=== PATIENT | female | born 2000 | race Caucasian/White ===

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

== ENCOUNTER 2019-02-19 13:28 | Inpatient (IN) | payer OTHER ==
[2019-02-19] MEDS ORDERED: CARBOPROST TROMETHAMINE 250 MCG/ML 1 ML AMP IM PRN (14:18)
[2019-02-19] MEDS ORDERED: LIDOCAINE 0.5% (PF) 5 MG/ML (50 ML SDV) SQ PRN (14:18)
[2019-02-19] MEDS ORDERED: OXYTOCIN 10 UNIT/ML 1 ML VIAL IM PRN (14:18)
[2019-02-19] MEDS ORDERED: METHYLERGONOVINE 0.2 MG/ML 1 ML AMP IM PRN (14:18)
[2019-02-19] MEDS ORDERED: TERBUTALINE 1 MG/ML VIAL SQ PRN (14:18)
[2019-02-19] MEDS: LACTATED RINGERS 1,000 ML IV SCH ×4 (14:24→23:48)
[2019-02-19] MEDS ORDERED: OXYTOCIN 30 UNITS/500 ML NS 30 UNIT in SALINE 1 500ML.BAG IV SCH (14:30)
[2019-02-19 14:34] LABS: Anisocytosis Slight; Basophils # (A) 0.1 k/uL (0-0.2); Basophils % (A) 0 %; Eosinophils # (A) 0.1 k/uL (0-0.7); Eosinophils % (A) 1 %; HGB 8.4 gm/dL (11.4-16.0); Hypochromasia Marked; Lymphocytes # (A) 1.7 k/uL (1.0-4.8); Lymphocytes % (A) 15 %; MCH 21.9 pg (25.0-35.0); MCV 70.6 fL (80.0-100.0); Mean Platelet Volume 8.4; Microcytosis Moderate; Monocytes # (A) 0.5 k/uL (0-1.0); Monocytes % (A) 4 %; Neutrophils # (A) 8.9 k/uL (1.3-7.7); Neutrophils % (A) 78 %; Platelet Count 266 k/uL (150-450); Poikilocytosis Slight; RBC 3.82 m/uL (3.80-5.40); RDW 16.9 % (11.5-15.5); WBC 11.4 k/uL (4.0-11.0)
[2019-02-19 15:55] VITALS: BMI 29.7
--- NOTE | 2019-02-19 18:17 | P.HPOB ---
History of Present Illness H&P Date: 02/19/19 Chief Complaint: Leaking of fluid This patient is a pleasant 19-year-old 1 para 0 female estimated date of confinement 02/27/2019 estimated gestational age 38-6/7 weeks gestation presents to labor and delivery complaining gush of fluid at 10:00 this morning. Patient a positive amnio sure here in labor and delivery. Patient is having irregular contractions. care is per Dr. Elizalde appears to be uncomplicated with the exception first trimester nausea vomiting and some anemia. Review of Systems Gastrointestinal: Reports heartburn Genitourinary: Reports Menstruation: Reports amenorrhea Past Medical History Past Medical History: No Reported History, Blood Disorder, Fibromyalgia Additional Past Medical History / Comment(s): anemia, fibromyalgia, History of Any Multi-Drug Resistant Organisms: None Reported Past Surgical History: Ear Surgery Past Anesthesia/Blood Transfusion Reactions: No Reported Reaction Past Psychological History: No Psychological Hx Reported Smoking Status: Never smoker Past Alcohol Use History: None Reported Past Drug Use History: None Reported - Past Family History Father Family Medical History: No Reported History Medications and Allergies Home Medications Medication Instructions Recorded Confirmed Type Lsw-Jplj-Buqtd Acid 1 cap PO DAILY 07/01/18 02/19/19 History [-U Capsule (formulary)] Allergies Allergy/AdvReac Type Severity Reaction Status Date / Time lactose Allergy Abdominal Verified 02/19/19 13:57 Pain latex Allergy Rash/Hives Verified 02/19/19 13:57 metoclopramide [From Reglan] AdvReac Chest Pain Verified 02/19/19 13:57 Exam Vital Signs Temp Pulse Resp BP 02/19/19 14:15 97.2 F L 97 16 110/60 Intake and Output 02/19/19 02/19/19 02/19/19 06:59 14:59 22:59 Other: # Voids 2 Weight 76.204 kg - OBG Physical Exam Abdomen: bowel sounds normal, no diffuse tenderness, no bruit present, no guarding noted, no hepatomegaly, no splenomegaly, no mass Vulva: both: normal Vagina: normal moisture, no discharge Cervix: no lesion (Cervix is 2-3 cm dilated 50% effaced and soft there is a fore bag presenting.), no discharge Uterus: enlarged Results blood work shows she is O positive, rubella nonimmune, RPR is nonreact hollis, hepatitis B is negative, HIV is nonreactive, Glucola was normal, group B strep was negative, ultrasounds have been normal. Result Diagrams: 02/19/19 14:15 Abnormal Lab Results - Last 24 Hours (Table) 02/19/19 Range/Units 14:15 WBC 11.4 H (4.0-11.0) k/uL Hgb 8.4 L (11.4-16.0) gm/dL Hct 27.0 L (34.0-46.0) % MCV 70.6 L (80.0-100.0) fL MCH 21.9 L (25.0-35.0) pg RDW 16.9 H (11.5-15.5) % Neutrophils # 8.9 H (1.3-7.7) k/uL Assessment and Plan Assessment: This is a pleasant 19-year-old 1 para 0 female 38-6/7 weeks gestation with premature rupture membranes 10:00 this morning and at this point no regular contractions plan is Pitocin induction of labor and anticipate vaginal delivery. (1) Premature rupture of membranes Current Visit: Yes Status: Acute Code(s): O42.90 - REHAN ROM, 7TH0 BETW RUPT & ONST LABR, UNSP WEEKS OF GEST SNOMED Code(s): 55818296 (2) 39 weeks gestation of Current Visit: Yes Status: Acute Code(s): Z3A.39 - 39 WEEKS GESTATION OF SNOMED Code(s): 40617099
[2019-02-19] MEDS ORDERED: BUTORPHANOL 1 MG/ML 1 ML VIAL IV PRN (19:20)
[2019-02-19] MEDS ORDERED: fentaNYL (PF) 50 MCG/ML 5 ML AMP ONE (20:15)
[2019-02-19] MEDS ORDERED: SODIUM CHLORIDE 0.9% 100 ML BAG ONE (20:15)
[2019-02-19] MEDS ORDERED: ROPIVACAINE 5MG/ML 20ML VIAL ONE (20:15)
[2019-02-19] MEDS ORDERED: AMPICILLIN 2,000 MG in SODIUM CHLORIDE 0.9% 100 ML IVPB STA (23:33)
[2019-02-20] MEDS ORDERED: AMPICILLIN 1,000 MG in SODIUM CHLORIDE 0.9% 50 ML IVPB SCH (03:34)
--- NOTE | 2019-02-20 06:31 | P.MSEPDOC ---
Presenting Problems - Arrival Data Date of Arrival on Unit: 02/19/19 Time of Arrival on Unit: 14:00 Mode of Transport: Ambulatory - Complaint OB-Reason for Admission/Chief Complaint: Rule Out SROM Medical History - Information : 1 Para: 1 Term: 1 : 0 Abortions: Spontaneous or Elective: 0 Number of Living Children: 1 - Gestational Age Gestational Age by JESSICA (wks/days): 38 Weeks and 6 Days Review of Systems - Review of Systems Constitutional: No problems Breast: No problems ENT: No problems Cardiovascular: No problems Respiratory: No problems Gastrointestinal: No problems Genitourinary: No problems Musculoskeletal: No problems Neurological: No problems Skin: No problems Vital Signs - Temperature Temperature: 97.2 F - Pulse Right Brachial Pulse Rate: 97 Pulse Assessment Method: Automatic Cuff - Respirations Respiratory Rate: 16 Oxygen Delivery Method: Room Air - Blood Pressure Right Arm Blood Pressure: 110/60 Blood Pressure Mean: 76 Blood Pressure Source: Automatic Cuff Medical Screen Scoring (Pre) - Cervical Exam Dilation: 1-3 cm = 1 Effacement: More than 50% = 2 Membranes: Ruptured = 3 - Uterine Contractions Frequency: > or = 36 weeks =2 Duration: > 40 seconds = 2 Intensity: N/A - Maternal Vital Signs Maternal Temperature: N/A Maternal Blood Pressure: N/A Signs of Preeclampsia: N/A Maternal Respirations: N/A - Maternal Trauma Maternal Trauma: N/A - Assessment - Baby A Baseline FHR: 145 Heart Rate - NICHD Category: Category I (Normal) = 0 NST: Reactive Position: N/A Station: N/A - Total Score - Baby A Total Score - Baby A: 10 - Total Score - Baby B Total Score - Baby B: 10 - Total Score - Baby C Total Score - Baby C: 10 - Level of Risk - Baby A Level of Risk - Baby A: High (10+) - Level of Risk - Baby B Level of Risk - Baby B: High (10+) - Level of Risk - Baby C Level of Risk - Baby C: High (10+) Physician Notification (Pre) - Physician Notified Physician Notified Date: 02/19/19 Physician Notified Time: 14:15 Physician/Practitioner Notifed:: Dr. Kaba Spoke With: Dr. Kaba New Order Received: Yes - Notification Comment Comment: admit for labor Disposition - Disposition OB Disposition: Admit I agree with the RN Medical Screening Exam: Yes Risk & Benefit of care provided described in d/c instruction: Yes Diagnosis: ENCOUNTER FOR FULL-TERM UNCOMPLICATED DELIVERY
[2019-02-20] MEDS ORDERED: HYDROCORTISONE 2.5% RECTAL CREAM 30 GM TUBE RECTAL PRN (07:06)
[2019-02-20] MEDS ORDERED: SIMETHICONE 80 MG CHEWABLE PO PRN (07:06)
[2019-02-20] MEDS ORDERED: BISACODYL 10 MG SUPP RECTAL PRN (07:06)
[2019-02-20] MEDS ORDERED: MEASLES-MUMPS-RUBELLA VACC/PF 12,500 UNIT/0.5 ML VIAL SQ ONE (07:06)
[2019-02-20] MEDS ORDERED: LANOLIN CREAM 5 GM TUBE TOPICAL PRN (07:06)
[2019-02-20] MEDS ORDERED: ZOLPIDEM 5 MG TAB PO PRN (07:06)
[2019-02-20] MEDS ORDERED: BENZOCAINE/MENTHOL SPRAY 1 GM/SPRAY AEROSOL TOPICAL PRN (07:06)
[2019-02-20] MEDS ORDERED: WITCH HAZEL 1 EACH MED..PAD TOPICAL PRN (07:06)
[2019-02-20] MEDS ORDERED: diphenhydrAMINE 25 MG CAP PO PRN (07:06)
[2019-02-20] MEDS ORDERED: diphenhydrAMINE 50 MG/ML 1 ML VIAL IVP PRN (07:06)
[2019-02-20] MEDS ORDERED: OXYTOCIN 20 UNITS/1000 ML NS 1,000 ML IV SCH (07:15)
--- NOTE | 2019-02-20 07:21 | P.PROBDLV ---
Vaginal Delivery Note - . Vaginal Delivery Note: Normal vaginal delivery viable male infant Apgars 9 and 9 delivery time is 0644 hours. Please see dictated H&P for intimate details of this patient's admission. In brief summary this is a pleasant 19-year-old 1 para 0 female 39 weeks gestation admitted to labor and delivery yesterday with spontaneous rupture membranes at 10 in the morning. Patient had Pitocin induction of labor and did receive an epidural for pain control. Labor progresses normally. At the 12 hour riri I did give her ampicillin for prolonged rupture. Patient got to complete pushes for approximately 30 minutes. She pushed head to the perineum the posterior perineum is supported we have controlled delivery of 's head over the intact perineum. Mouth and nares are bulb suctioned. There is a nuchal cord which is very loose and reduced. With gentle downward traction within delivery the anterior and posterior shoulder and rest this 's body. This is a vigorous viable male infant Apgars are 9 and 9 delivery time is 0644 hours. The is late on the mother's abdomen. After the umbilical cord is done pulsating it is doubly clamped and cut appears to be trivascular. The placenta is then spontaneously delivered intact. Inspection of the perineum shows a second-degree laceration which is repaired with 3-0 Vicryl usual fashion excellent reapproximation is noted. Estimated blood loss is 150 mL. There are no complications. Infant and mother are stable delivery room.
[2019-02-20] MEDS: IBUPROFEN 600 MG TAB PO PRN (07:44)
[2019-02-20] MEDS: SENNOSIDES-DOCUSATE SODIUM 1 EACH TAB PO SCH ×2 (10:31→19:30)
[2019-02-20] MEDS: ACETAMINOPHEN TAB 325 MG TAB PO PRN (15:37)
--- NOTE | 2019-02-21 06:30 | P.PNOBGVD ---
Subjective - Subjective Patient reports: Reports appetite normal, Reports voiding normally, Reports pain well controlled, Reports ambulating normally : doing well Objective - Latest Vital Signs Latest vital signs: Vital Signs Temp Pulse Resp BP 02/20/19 23:35 98.0 F 86 16 117/67 02/20/19 19:33 97.8 F 86 16 101/62 02/20/19 16:00 98.2 F 80 16 112/58 02/20/19 12:00 98.9 F 78 16 107/54 02/20/19 09:01 97.8 F 100 16 120/56 02/20/19 08:31 99.0 F 90 14 108/62 02/20/19 08:01 88 14 113/62 02/20/19 07:46 113 H 16 107/54 02/20/19 07:31 100.8 F H 110 H 16 122/53 02/20/19 07:16 116 H 16 113/58 02/20/19 07:01 100.5 F H 103 H 16 114/58 02/20/19 06:31 97.2 F L 97 16 110/60 Intake and Output 02/20/19 02/20/19 02/21/19 14:59 22:59 06:59 Other: # Voids 1 2 1 - Exam Lungs: bilateral: normal Chest: Normal S1, Normal S2 Extremities: Present: normal Abdomen: Present: normal appearance, soft Uterus: Present: normal, firm Assessment and Plan Assessment: Post day #1. Patient is resting without complaints. Vital signs are stable and she is afebrile. Her baby is doing well but needs to stay another day due to prolonged rupture. Therefore, we will continue routine care discharge home tomorrow (1) Premature rupture of membranes Current Visit: Yes Status: Acute Code(s): O42.90 - REHAN ROM, 7TH0 BETW RUPT & ONST LABR, UNSP WEEKS OF GEST SNOMED Code(s): 09326391 (2) 39 weeks gestation of Current Visit: Yes Status: Acute Code(s): Z3A.39 - 39 WEEKS GESTATION OF SNOMED Code(s): 78748363
[2019-02-21] MEDS: SENNOSIDES-DOCUSATE SODIUM 1 EACH TAB PO SCH ×2 (08:32→20:43)
[2019-02-21] MEDS: IBUPROFEN 600 MG TAB PO PRN ×3 (08:32→20:43)
[2019-02-21] MEDS: ACETAMINOPHEN TAB 325 MG TAB PO PRN (23:41)
[2019-02-21 23:50] VITALS: TEMP 98.5
[2019-02-22] MEDS: IBUPROFEN 600 MG TAB PO PRN ×2 (03:45→11:13)
--- NOTE | 2019-02-22 06:03 | P.PNOBGVD ---
Subjective - Subjective Patient reports: Reports appetite normal, Reports voiding normally, Reports pain well controlled, Reports ambulating normally : doing well Objective - Latest Vital Signs Latest vital signs: Vital Signs Temp Pulse Resp BP Pulse Ox 02/21/19 23:50 98.5 F 82 14 108/55 100 02/21/19 15:39 98.2 F 82 16 105/62 02/21/19 08:00 98.6 F 83 16 111/72 Intake and Output 02/21/19 02/21/19 02/22/19 14:59 22:59 06:59 Other: # Voids 1 1 1 - Exam Lungs: bilateral: normal Chest: Normal S1, Normal S2 Extremities: Present: normal Abdomen: Present: normal appearance, soft Uterus: Present: normal, firm Assessment and Plan Assessment: day #2. Patient is resting without complaints. Vital signs are stable she is afebrile. Uterus is firm nontender she's having normal lochia. My impression this is a normal course. Plan is to continue routine care discharge home later today. (1) Premature rupture of membranes Current Visit: Yes Status: Acute Code(s): O42.90 - REHAN ROM, 7TH0 BETW RUPT & ONST LABR, UNSP WEEKS OF GEST SNOMED Code(s): 97736158 (2) 39 weeks gestation of Current Visit: Yes Status: Acute Code(s): Z3A.39 - 39 WEEKS GESTATION OF SNOMED Code(s): 02530841
--- NOTE | 2019-02-22 06:06 | P.DS ---
Providers Date of admission: 02/19/19 13:48 Expected date of discharge: 02/22/19 Attending physician: Landen Kaba Primary care physician: Stated None - Discharge Diagnosis(es) (1) Premature rupture of membranes Current Visit: Yes Status: Acute (2) 39 weeks gestation of Current Visit: Yes Status: Acute Hospital Course: Please see dictated H&P for intimate details of this patient's admission. Brief summary this is a pleasant 19-year-old 1 para 0 female 39-0/7 weeks gestation who is admitted to labor and delivery with spontaneous rupture membranes. Patient is not having any contractions therefore has Pitocin augmentation/induction of labor. She is given antibiotics at the 12 hour riri. Patient therefore goes on to have a vaginal delivery viable male . Please see dictated delivery note. day #2 patient's felt be stable for discharge home follow up with Dr. Elizalde in 6 weeks. Procedures: Normal vaginal delivery Patient Condition at Discharge: Good Plan - Discharge Summary New Discharge Prescriptions: New Ibuprofen [Motrin] 600 mg PO Q6HR PRN #40 tab PRN Reason: Mild Pain Or Fever >= 100.5 No Action [id number] Acid [-U Capsule (formulary)] 1 cap PO DAILY Discharge Medication List [id number] Acid [-U Capsule (formulary)] 1 cap PO DAILY 07/01/18 [History] Ibuprofen [Motrin] 600 mg PO Q6HR PRN #40 tab 02/22/19 [Rx] Follow up Appointment(s)/Referral(s): Tere Elizalde DO [Doctor of Osteopathic Medicine] - 6 Weeks Patient Instructions/Handouts: Vaginal Delivery (DC) Activity/Diet/Wound Care/Special Instructions: No intercourse or anything per vagina for 6 weeks. Please call if any fever, chills, excessive vaginal bleeding, and/or abdominal pain. Discharge Disposition: HOME SELF-CARE
[2019-02-22 08:04] VITALS: BP 119/57; PULSE 84; RESP 16
[2019-02-22] MEDS: SENNOSIDES-DOCUSATE SODIUM 1 EACH TAB PO SCH (08:09)
== END 2019-02-22 12:57 | disposition home or self-care (01) | DRG 807 ==
LOC: FBPOP 13:28 → 4FBP 13:48
PROVIDERS: ADMIT Obstetrics & Gynecology; ATTEND Obstetrics & Gynecology
PROC: 3E033VJ Introduction of Other Hormone into Peripheral Vein, Percutaneous Approach (ICD-10-PCS; 2019-02-19)
PROC: 00HU33Z Insertion of Infusion Device into Spinal Canal, Percutaneous Approach (ICD-10-PCS; 2019-02-19)
PROC: 3E0R3BZ Introduction of Anesthetic Agent into Spinal Canal, Percutaneous Approach (ICD-10-PCS; 2019-02-19)
PROC: 10E0XZZ Delivery of Products of Conception, External Approach (ICD-10-PCS; principal; 2019-02-20)
PROC: 0KQM0ZZ Repair Perineum Muscle, Open Approach (ICD-10-PCS; 2019-02-20)
DX: O42.92 Full-term premature rupture of membranes, unspecified as to length of time between rupture and onset of labor (principal); Z37.0 Single live birth; O99.613 Diseases of the digestive system complicating pregnancy, third trimester; K21.9 Gastro-esophageal reflux disease without esophagitis; O99.89 Other specified diseases and conditions complicating pregnancy, childbirth and the puerperium; M79.7 Fibromyalgia; O69.81X0 Labor and delivery complicated by cord around neck, without compression, not applicable or unspecified; O70.1 Second degree perineal laceration during delivery; Z3A.39 39 weeks gestation of pregnancy; Z79.899 Other long term (current) drug therapy; Z86.2 Personal history of diseases of the blood and blood-forming organs and certain disorders involving the immune mechanism; Z88.8 Allergy status to other drugs, medicaments and biological substances; Z91.040 Latex allergy status; Z91.011 Allergy to milk products
CPT/HCPCS: 85025; 86850; 86900; 86901; 88307; 90471; 90707

== ENCOUNTER 2019-02-24 16:57 | Emergency (ER) | payer OTHER ==
[2019-02-24 17:10] VITALS: RESP 18
[2019-02-24] MEDS ORDERED: SODIUM CHLORIDE 0.9% 1,000 ML IV STA (17:36)
[2019-02-24] MEDS ORDERED: ACETAMINOPHEN TAB 500 MG TAB PO STA (17:36)
--- NOTE | 2019-02-24 17:48 | ED ---
General Adult HPI - General Chief complaint: Headache Stated complaint: Headache Time Seen by Provider: 02/24/19 17:35 Source: patient Mode of arrival: ambulatory Limitations: no limitations - History of Present Illness Initial comments: Dictation was produced using [employer] dictation software. please excuse any grammatical, word or spelling errors. Chief Complaint: 19-year-old female presents with headache. History of Present Illness: 19-year-old female she is 3-4 days . Patient has been having headaches since the childbirth. She states it is localized to her mid face. She states when the headache gets to its peak she does also have visual changes. Patient denies having any headaches like this in the past. She did receive an epidural during the time of childbirth. Denies any fever, chills or night sweats. She does have a history of fibromyalgia. The ROS documented in this emergency department record has been reviewed and confirmed by me. Those systems with pertinent positive or negative responses have been documented in the HPI. All other systems are other negative and/or noncontributory. PHYSICAL EXAM: General Impression: Alert and oriented x3, not in acute distress HEENT: Normocephalic atraumatic, extra-ocular movements intact, pupils equal and reactive to light bilaterally, mucous membranes moist. Cardiovascular: Heart regular rate and rhythm, S1&S2 audible, no murmurs, rubs o r gallops Chest: Lungs clear to auscultation bilaterally, no rhonchi, no wheeze, no rales Abdomen: Bowel sounds present, abdomen soft, non-tender, non-distended, no organomegaly Musculoskeletal: Pulses present and equal in all extremities, no peripheral edema Motor: no focal deficits noted Neurological: CN II-XII grossly intact, no focal motor or sensory deficits noted Skin: Intact with no visualized rashes Psych: Normal affect and mood ED course: 19-year-old female presents with headache. Patient is within 1 week of . As upon arrival are within acceptable limits. Giv en patient's and has symptoms of notes and headache there is concern of venous sinus thrombosis. Vital signs do not support the diagnosis of preeclampsia causing headache.Computed tomography scan was obtained showing no findings of venous sinus thrombosis. There is a small amount of posterior cranial air likely inadvertent air bubble from lumbar puncture otherwise negative exam. This finding was discussed with anesthesia who had no recommendations in to treat supportively. Laboratory evaluation obtained. Patient is hemoglobin of 6.6 there is findings of microcytic hypochromic anemia. Coag panel unremarkable. Metabolic panel is unremarkable. No proteinuria, urinalysis unremarkable. Patient given some Tylenol and intravenous fluids. Discussed lab findings with Dr. Elizalde who is patient's home aide. Dr. Elizalde requests that no transfusions be given given that she does not have any symptoms of acute blood loss anemia. She is told to follow-up with Dr. Elizalde for repeat CBC. Patient reevaluated found with stable medical condition. Patient told to rest and follow up Dr. Elizalde. Temperature was discussed. Patient is told to return to emergency Department with any worsening symptoms especially neurologic symptoms including worsening headache, seizures, altered mental status. Patient also told to return to the emergency Department with signs of a blood loss anemia with lightheadedness and dyspnea on exertion. Patient clear for discharge. - Related Data Previous Rx's Medication Instructions Recorded Ibuprofen [Motrin] 600 mg PO Q6HR PRN #40 tab 02/22/19 Allergies Allergy/AdvReac Type Severity Reaction Status Date / Time lactose Allergy Abdominal Verified 02/24/19 17:55 Pain latex Allergy Rash/Hives Verified 02/24/19 17:55 metoclopramide [From Reglan] AdvReac Chest Pain Verified 02/24/19 17:55 Review of Systems ROS Statement: Those systems with pertinent positive or pertinent negative responses have been documented in the HPI. ROS Other: All systems not noted in ROS Statement are negative. Past Medical History Past Medical History: No Reported History, Blood Disorder, Fibromyalgia Additional Past Medical History / Comment(s): anemia, fibromyalgia, History of Any Multi-Drug Resistant Organisms: None Reported Past Surgical History: Ear Surgery Past Anesthesia/Blood Transfusion Reactions: No Reported Reaction Past Psychological History: No Psychological Hx Reported Smoking Status: Never smoker Past Alcohol Use History: None Reported Past Drug Use History: None Reported - Past Family History Father Family Medical History: No Reported History General Exam Limitations: no limitations Course Vital Signs 02/24/19 02/24/19 17:05 18:42 Temperature 98.4 F Pulse Rate 78 72 Respiratory 18 18 Rate Blood Pressure 112/76 115/79 O2 Sat by Pulse 100 97 Oximetry Medical Decision Making - Lab Data Result diagrams: 02/24/19 17:50 02/24/19 17:50 Lab Results 02/24/19 02/24/19 02/24/19 Range/Units 17:50 17:50 17:50 WBC 8.3 (4.0-11.0) k/uL RBC 3.10 L (3.80-5.40) m/uL Hgb 6.6 L* D (11.4-16.0) gm/dL Hct 22.2 L (34.0-46.0) % MCV 71.5 L (80.0-100.0) fL MCH 21.2 L (25.0-35.0) pg MCHC 29.7 L (31.0-37.0) g/dL RDW 18.4 H (11.5-15.5) % Plt Count 405 (150-450) k/uL Neutrophils % 67 % Lymphocytes % 21 % Monocytes % 5 % Eosinophils % 5 % Basophils % 1 % Neutrophils # 5.6 (1.3-7.7) k/uL Lymphocytes # 1.8 (1.0-4.8) k/uL Monocytes # 0.4 (0-1.0) k/uL Eosinophils # 0.4 (0-0.7) k/uL Basophils # 0.0 (0-0.2) k/uL Manual Slide Review Performed Polychromasia Present Hypochromasia Marked Poikilocytosis Slight Poikilocytosis (manual Present Anisocytosis Slight Microcytosis Moderate Target Cells Present PT (9.0-12.0) sec INR (<1.2) APTT (22.0-30.0) sec Sodium 142 (137-145) mmol/L Potassium 3.8 (3.5-5.1) mmol/L Chloride 110 H (98-107) mmol/L Carbon Dioxide 24 (22-30) mmol/L Anion Gap 8 mmol/L BUN 13 (7-17) mg/dL Creatinine 0.56 (0.52-1.04) mg/dL Est GFR (CKD-EPI)AfAm >90 (>60 ml/min/1.73 sqM) Est GFR (CKD-EPI)NonAf >90 (>60 ml/min/1.73 sqM) Glucose 81 (74-99) mg/dL Calcium 8.2 L (8.4-10.2) mg/dL Magnesium 2.0 (1.6-2.3) mg/dL Total Bilirubin 0.4 (0.2-1.3) mg/dL AST 26 (14-36) U/L ALT 27 (9-52) U/L Alkaline Phosphatase 131 H (38-126) U/L Lactate Dehydrogenase 645 H (313-618) U/L Total Protein 6.3 (6.3-8.2) g/dL Albumin 3.3 L (3.5-5.0) g/dL Urine Color Light Yellow Urine Appearance Clear (Clear) Urine pH 7.5 (5.0-8.0) Ur Specific [place] 1.009 (1.001-1.035) Urine Protein Negative (Negative) Urine Glucose (UA) Negative (Negative) Urine Ketones Negative (Negative) Urine Blood Small H (Negative) Urine Nitrite Negative (Negative) Urine Bilirubin Negative (Negative) Urine Urobilinogen <2.0 (<2.0) mg/dL Ur Leukocyte Esterase Small H (Negative) Urine RBC 2 (0-5) /hpf Urine WBC 2 (0-5) /hpf Urine Mucus Rare H (None) /hpf 02/24/19 Range/Units 17:50 WBC (4.0-11.0) k/uL RBC (3.80-5.40) m/uL Hgb (11.4-16.0) gm/dL Hct (34.0-46.0) % MCV (80.0-100.0) fL MCH (25.0-35.0) pg MCHC (31.0-37.0) g/dL RDW (11.5-15.5) % Plt Count (150-450) k/uL Neutrophils % % Lymphocytes % % Monocytes % % Eosinophils % % Basophils % % Neutrophils # (1.3-7.7) k/uL Lymphocytes # (1.0-4.8) k/uL Monocytes # (0-1.0) k/uL Eosinophils # (0-0.7) k/uL Basophils # (0-0.2) k/uL Manual Slide Review Polychromasia Hypochromasia Poikilocytosis Poikilocytosis (manual Anisocytosis Microcytosis Target Cells PT 10.3 (9.0-12.0) sec INR 1.0 (<1.2) APTT 24.0 (22.0-30.0) sec Sodium (137-145) mmol/L Potassium (3.5-5.1) mmol/L Chloride (98-107) mmol/L Carbon Dioxide (22-30) mmol/L Anion Gap mmol/L BUN (7-17) mg/dL Creatinine (0.52-1.04) mg/dL Est GFR (CKD-EPI)AfAm (>60 ml/min/1.73 sqM) Est GFR (CKD-EPI)NonAf (>60 ml/min/1.73 sqM) Glucose (74-99) mg/dL Calcium (8.4-10.2) mg/dL Magnesium (1.6-2.3) mg/dL Total Bilirubin (0.2-1.3) mg/dL AST (14-36) U/L ALT (9-52) U/L Alkaline Phosphatase (38-126) U/L Lactate Dehydrogenase (313-618) U/L Total Protein (6.3-8.2) g/dL Albumin (3.5-5.0) g/dL Urine Color Urine Appearance (Clear) Urine pH (5.0-8.0) Ur Specific [place] (1.001-1.035) Urine Protein (Negative) Urine Glucose (UA) (Negative) Urine Ketones (Negative) Urine Blood (Negative) Urine Nitrite (Negative) Urine Bilirubin (Negative) Urine Urobilinogen (<2.0) mg/dL Ur Leukocyte Esterase (Negative) Urine RBC (0-5) /hpf Urine WBC (0-5) /hpf Urine Mucus (None) /hpf Disposition Clinical Impression: Acute headache Disposition: HOME SELF-CARE Condition: Good Instructions (If sedation given, give patient instructions): Acute Headache (ED), Lumbar Puncture (ED) Is patient prescribed a controlled substance at d/c from ED?: No Referrals: Tere Elizalde DO [Doctor of Osteopathic Medicine] - 1-2 days Time of Disposition: 19:52
[2019-02-24 18:06] LABS: Appearance,Urine Clear (Clear); Bilirubin,Urine Negative (Negative); Blood,Urine Small (Negative); Color,Urine Light Yellow; Glucose,Urine (UA) Negative (Negative); Ketones,Urine Negative (Negative); Leukocyte Esterase,Urine Small (Negative); Mucus,Urine Rare /hpf; Nitrite,Urine Negative (Negative); PH, Urine 7.5 (5.0-8.0); Protein,Urine Negative (Negative); RBC,Urine 2 /hpf (0-5); Specific Gravity,Urine 1.009 (1.001-1.035); Urobilinogen,Urine <2.0 mg/dL (<2.0)
[2019-02-24 18:12] LABS: Prothrombin Time 10.3 sec (9.0-12.0)
[2019-02-24 18:15] LABS: ALT 27 U/L (9-52); AST 26 U/L (14-36); African American GFR (CKD) >90 (>60 ml/min/1.73 sqM); Albumin 3.3 g/dL (3.5-5.0); Alkaline Phosphatase 131 U/L (38-126); Anion Gap 8 mmol/L; Blood Urea Nitrogen 13 mg/dL (7-17); Calcium 8.2 mg/dL (8.4-10.2); Carbon Dioxide 24 mmol/L (22-30); Chloride 110 mmol/L (98-107); Glucose 81 mg/dL (74-99); LDH 645 U/L (313-618); Potassium 3.8 mmol/L (3.5-5.1); Sodium 142 mmol/L (137-145); Total Bilirubin 0.4 mg/dL (0.2-1.3); Total Protein 6.3 g/dL (6.3-8.2)
[2019-02-24 18:24] LABS: Anisocytosis Slight; Basophils % (A) 1 %; Eosinophils # (A) 0.4 k/uL (0-0.7); Eosinophils % (A) 5 %; HCT 22.2 % (34.0-46.0); Hypochromasia Marked; Lymphocytes # (A) 1.8 k/uL (1.0-4.8); Lymphocytes % (A) 21 %; MCH 21.2 pg (25.0-35.0); MCHC 29.7 g/dL (31.0-37.0); MCV 71.5 fL (80.0-100.0); Mean Platelet Volume 7.4; Microcytosis Moderate; Monocytes # (A) 0.4 k/uL (0-1.0); Monocytes % (A) 5 %; Neutrophils # (A) 5.6 k/uL (1.3-7.7); Neutrophils % (A) 67 %; Platelet Count 405 k/uL (150-450); Poikilocytosis Slight; RDW 18.4 % (11.5-15.5); WBC 8.3 k/uL (4.0-11.0)
[2019-02-24 18:35] LABS: HGB 6.6 gm/dL (11.4-16.0)
--- NOTE | 2019-02-24 18:49 | CT ---
EXAMINATION TYPE: CT brain wo/w con DATE OF EXAM: 02/24/2019 COMPARISON: None HISTORY: HARMON post x4 days CT DLP: 2181.4 mGycm Automated exposure control for dose reduction was used. CONTRAST: Performed without and with IV Contrast, patient injected with 100 mL of Isovue 300. FINDINGS: Ventricles have normal size. There is no mass effect nor midline shift. There is no sign of intracran ial hemorrhage. There is some air in the posterior interhemispheric fissure. This measures 10 mm. Is not clear if this is within the venous sinuses. This is probably in the subarachnoid space related to lumbar puncture. There is no pathologic enhancement. Calvarium is intact. There is no evidence of ce rebral edema. IMPRESSION: SMALL AMOUNT OF POSTERIOR INTRACRANIAL AIR IN THE CSF SPACE PROBABLY RELATED TO INADVERTENT AIR BUBBL E FROM LUMBAR PUNCTURE. OTHERWISE NEGATIVE EXAM.
[2019-02-24 19:11] LABS: Poikilocytosis (M) Present; Polychromasia Present
[2019-02-24 19:12] LABS: Target Cells Present
[2019-02-24 20:11] VITALS: BP 105/76; PULSE 66; TEMP 98.6
== END 2019-02-24 20:11 | disposition home or self-care (01) ==
LOC: EC 16:57
DX: O90.89 Other complications of the puerperium, not elsewhere classified (principal); R51 Headache; H53.9 Unspecified visual disturbance; O90.81 Anemia of the puerperium; Z88.8 Allergy status to other drugs, medicaments and biological substances; Z91.018 Allergy to other foods; Z91.040 Latex allergy status
CPT/HCPCS: 99284; 96360; 36415; 80053; 83615; 83735; 85025; 85610; 85730; 81001; 70470; Q9967

== ENCOUNTER 2021-04-12 17:22 | Emergency (ER) | payer OTHER ==
[2021-04-12 18:12] VITALS: TEMP 98.4
[2021-04-12 19:54] LABS: Appearance,Urine Clear (Clear); Bilirubin,Urine Negative (Negative); Blood,Urine Large (Negative); Color,Urine Light Yellow; Glucose,Urine (UA) Negative (Negative); Ketones,Urine 1+ (Negative); Leukocyte Esterase,Urine Negative (Negative); Nitrite,Urine Negative (Negative); PH, Urine 6.5 (5.0-8.0); Protein,Urine Negative (Negative); RBC,Urine 4 /hpf (0-5); Specific Gravity,Urine 1.004 (1.001-1.035); Squamous Epithelial Cell,Urine 2 /hpf (0-4); Urobilinogen,Urine <2.0 mg/dL (<2.0); WBC,Urine 1 /hpf (0-5)
[2021-04-12] MEDS ORDERED: SODIUM CHLORIDE 0.9% 1,000 ML IV STA (20:06)
--- NOTE | 2021-04-12 20:11 | ED ---
General Adult HPI - General Chief complaint: Vaginal Bleeding Stated complaint: Early /Bleeding/has IUD Time Seen by Provider: 04/12/21 19:56 Source: patient, RN notes reviewed Mode of arrival: ambulatory Limitations: no limitations - History of Present Illness Initial comments: Well-appearing well-nourished 21-year-old female, alert and oriented 4, presents to the emergency room with complaints of vaginal bleeding. Patient states that she's been bleeding for 3 weeks. She states that she has had an IUD but took a test was positive twice. She states that the pain is on the right side and feels better when she pushes down on it. She denies any fevers, nausea or vomiting. She has been having some diarrhea. Her IUD was placed a year ago. She does have 2 years old. She is a pending the results of her test today. She does smoke marijuana but denies any tobacco or drug use. She does occasionally drink on weekends.. -: week(s) (3) Location: right (Groin) Radiation: non-radiation Severity scale (1-10): 6 Quality: other (Pressure) Consistency: intermittent Improves with: other (Manual compression of the right groin) Worsens with: none Associated Symptoms: other (Vaginal bleeding) Treatments Prior to Arrival: none - Related Data Home Medications Medication Instructions Recorded Confirmed No Known Home Medications 04/12/21 04/12/21 Allergies Allergy/AdvReac Type Severity Reaction Status Date / Time lactose Allergy Abdominal Verified 04/12/21 22:16 Pain latex Allergy Rash/Hives Verified 04/12/21 22:16 metoclopramide [From Reglan] AdvReac Chest Pain Verified 04/12/21 22:16 Review of Systems ROS Statement: Those systems with pertinent positive or pertinent negative responses have been documented in the HPI. ROS Other: All systems not noted in ROS Statement are negative. Past Medical History Past Medical History: No Reported History, Blood Disorder, Fibromyalgia Additional Past Medical History / Comment(s): anemia, fibromyalgia, History of Any Multi-Drug Resistant Organisms: None Reported Past Surgical History: Ear Surgery Past Anesthesia/Blood Transfusion Reactions: No Reported Reaction Past Psychological History: No Psychological Hx Reported Smoking Status: Former smoker Past Alcohol Use History: None Reported, Occasional Past Drug Use History: Marijuana - Past Family History Father Family Medical History: No Reported History General Exam Limitations: no limitations General appearance: alert, in no apparent distress Head exam: Present: atraumatic, normocephalic, normal inspection Eye exam: Present: normal appearance, PERRL, EOMI. Absent: scleral icterus, conjunctival injection, periorbital swelling ENT exam: Present: normal exam, normal oropharynx, mucous membranes moist Neck exam: Present: normal inspection, full ROM. Absent: tenderness, meningismus, lymphadenopathy Respiratory exam: Present: normal lung sounds bilaterally. Absent: respiratory distress, wheezes, rales, rhonchi, stridor Cardiovascular Exam: Present: regular rate, normal rhythm, normal heart sounds. Absent: systolic murmur, diastolic murmur, rubs, gallop, clicks GI/Abdominal exam: Present: soft, tenderness (Right lower quadrant) External exam: Present: normal external exam. Absent: erythema, swelling, lesions, lacerations Speculum exam: Present: vaginal bleeding. Absent: foreign body, tissue, laceration By manual exam: Present: normal by manual exam, adnexal tenderness (Right side). Absent: cervical motion tenderness, uterine tenderness Extremities exam: Present: normal inspection, full ROM, normal capillary refill. Absent: tenderness, pedal edema, joint swelling, calf tenderness Back exam: Present: normal inspection, full ROM. Absent: tenderness, CVA tenderness (R), CVA tenderness (L), vertebral tenderness, rash noted Neurological exam: Present: alert, oriented X3 Psychiatric exam: Present: normal affect, normal mood Skin exam: Present: warm, dry, intact, normal color. Absent: rash, cyanosis, diaphoretic Course Vital Signs 04/12/21 04/12/21 04/12/21 18:09 21:01 21:52 Temperature 98.4 F Pulse Rate 90 86 93 Respiratory 18 16 18 Rate Blood Pressure 107/70 109/78 101/56 O2 Sat by Pulse 100 97 98 Oximetry 04/12/21 23:13 Temperature Pulse Rate 83 Respiratory 18 Rate Blood Pressure 98/63 O2 Sat by Pulse 98 Oximetry Medical Decision Making - Medical Decision Making No intrauterine is seen on ultrasound. IUD is noted to be in place. Patient's hemoglobin is 13 and hematocrit is 39. There is no evidence of urinary tract infection. A urine test is positive. Her serum beta count is 203. Her blood type is O+. On speculum exam patient has a small amount of vaginal bleeding. Cervical os is closed. I was unable to visualize the IUD the strings. Her abdomen is soft. She is not complaining any dizziness. She is hemodynamically stable. I did speak with Dr. Griffith regarding the patient's case. She recommended patient be discharged to have her beta hCG redrawn on Thursday at the lab or in the emergency room, follow-up with Dr. Elizalde's office on Thursday for IUD removal. Return to the emergency room with any new or worsening pain or increasing bleeding. Patient did state that she did not plan this and is considering an . I advised her to follow up with Dr. Elizalde in that regard. She is agreeable to this plan of care. Case discussed with Dr. Hoover - Lab Data Result diagrams: 04/12/21 20:29 Lab Results 04/12/21 04/12/21 04/12/21 Range/Units 19:49 20:08 20:08 WBC (3.8-10.6) k/uL RBC (3.80-5.40) m/uL Hgb (11.4-16.0) gm/dL Hct (34.0-46.0) % MCV (80.0-100.0) fL MCH (25.0-35.0) pg MCHC (31.0-37.0) g/dL RDW (11.5-15.5) % Plt Count (150-450) k/uL MPV Neutrophils % % Lymphocytes % % Monocytes % % Eosinophils % % Basophils % % Neutrophils # (1.3-7.7) k/uL Lymphocytes # (1.0-4.8) k/uL Monocytes # (0-1.0) k/uL Eosinophils # (0-0.7) k/uL Basophils # (0-0.2) k/uL HCG, Quant 203.2 mIU/mL Urine Color Light Yellow Urine Appearance Clear (Clear) Urine pH 6.5 (5.0-8.0) Ur Specific [place] 1.004 (1.001-1.035) Urine Protein Negative (Negative) Urine Glucose (UA) Negative (Negative) Urine Ketones 1+ H (Negative) Urine Blood Large H (Negative) Urine Nitrite Negative (Negative) Urine Bilirubin Negative (Negative) Urine Urobilinogen <2.0 (<2.0) mg/dL Ur Leukocyte Esterase Negative (Negative) Urine RBC 4 (0-5) /hpf Urine WBC 1 (0-5) /hpf Ur Squamous Epith Cells 2 (0-4) /hpf Urine HCG, Qual Detected (Not Detectd) Blood Type Blood Type Recheck Bld Type Recheck Status 04/12/21 04/12/21 Range/Units 20:29 20:31 WBC 10.7 H (3.8-10.6) k/uL RBC 4.77 (3.80-5.40) m/uL Hgb 13.0 (11.4-16.0) gm/dL Hct 39.6 (34.0-46.0) % MCV 83.1 (80.0-100.0) fL MCH 27.2 (25.0-35.0) pg MCHC 32.7 (31.0-37.0) g/dL RDW 13.6 (11.5-15.5) % Plt Count 310 (150-450) k/uL MPV 7.9 Neutrophils % 77 % Lymphocytes % 17 % Monocytes % 3 % Eosinophils % 1 % Basophils % 0 % Neutrophils # 8.2 H (1.3-7.7) k/uL Lymphocytes # 1.9 (1.0-4.8) k/uL Monocytes # 0.4 (0-1.0) k/uL Eosinophils # 0.1 (0-0.7) k/uL Basophils # 0.1 (0-0.2) k/uL HCG, Quant mIU/mL Urine Color Urine Appearance (Clear) Urine pH (5.0-8.0) Ur Specific [place] (1.001-1.035) Urine Protein (Negative) Urine Glucose (UA) (Negative) Urine Ketones (Negative) Urine Blood (Negative) Urine Nitrite (Negative) Urine Bilirubin (Negative) Urine Urobilinogen (<2.0) mg/dL Ur Leukocyte Esterase (Negative) Urine RBC (0-5) /hpf Urine WBC (0-5) /hpf Ur Squamous Epith Cells (0-4) /hpf Urine HCG, Qual (Not Detectd) Blood Type O Positive Blood Type Recheck O Pos Bld Type Recheck Status No Disposition Clinical Impression: Vaginal bleeding, Threatened Disposition: HOME SELF-CARE Condition: Good Instructions (If sedation given, give patient instructions): Threatened Misca rriage (ED) Additional Instructions: Have your serum beta HCG redrawn on 04/14/21 at outpatient lab or in the emergency room. Follow-up with Dr. Elizalde's office Thursday morning. Return to the emergency room with an increase in pain or increase in vaginal bleeding. Take Tylenol for pain and use warm compresses. Is patient prescribed a controlled substance at d/c from ED?: No Referrals: None,Stated [Primary Care Provider] - 1-2 days Time of Disposition: 23:01
[2021-04-12 20:41] LABS: Basophils # (A) 0.1 k/uL (0-0.2); Basophils % (A) 0 %; Eosinophils # (A) 0.1 k/uL (0-0.7); Eosinophils % (A) 1 %; HCT 39.6 % (34.0-46.0); Lymphocytes # (A) 1.9 k/uL (1.0-4.8); Lymphocytes % (A) 17 %; MCH 27.2 pg (25.0-35.0); MCHC 32.7 g/dL (31.0-37.0); MCV 83.1 fL (80.0-100.0); Mean Platelet Volume 7.9; Monocytes # (A) 0.4 k/uL (0-1.0); Monocytes % (A) 3 %; Neutrophils # (A) 8.2 k/uL (1.3-7.7); Neutrophils % (A) 77 %; Platelet Count 310 k/uL (150-450); RBC 4.77 m/uL (3.80-5.40); RDW 13.6 % (11.5-15.5); WBC 10.7 k/uL (3.8-10.6)
--- NOTE | 2021-04-12 20:53 | US ---
EXAMINATION TYPE: Transabdominal DATE OF EXAM: 04/12/2021 8:28 PM COMPARISON: NONE CLINICAL HISTORY: IUD in place, positive preg test at home. Bleeding and right pelvic pain EXAM PERFORMED: Transvaginal (TV) and Transabdominal (TA) EXAM MEASUREMENTS: GESTATIONAL AGE / DATING Physician Established: Not yet established Dates by LMP: LMP unknown Dates by First Scan: No previous this is first scan Dates by Current Scan for: No IUP seen at this t phuc MATERNAL ANATOMY Uterus: 7.1 x 3.2 x 4.7cm Endometrium: 0.6cm, IUD seen in place Right Ovary: 3.7 x 2.0 x 1.5cm Left Ovary: 2.6 x 1.2 x 1.4cm Post CDS / Adnexa: free fluid within posterior cul-de-sac, right adnexa = 2.2 x 1.0 x 2.3cm hypoechoi c non peristalsing area seen adjacent to right ovary Presence of free fluid: yes Presence of corpus luteal cyst: right = 1.6cm Presence of subchorionic bleed: no GESTATION / SURVEY IUP: No IUP seen at this time Date of LMP: Unknown Beta HcG (if available): Not available at time of exam IMPRESSION: No intrauterine seen with certainty. In the setting of a positive beta hCG I cannot exclude ectopic . IUD is noted to be in place. Correlate clinically and with serial beta hCG and/or ultrasound.
[2021-04-12 21:52] VITALS: RESP 18
[2021-04-12 23:14] VITALS: BP 98/63; PULSE 83
== END 2021-04-12 23:14 | disposition home or self-care (01) ==
LOC: EC 17:22
DX: O20.0 Threatened abortion (principal); O99.320 Drug use complicating pregnancy, unspecified trimester; F12.90 Cannabis use, unspecified, uncomplicated; M79.7 Fibromyalgia; Z3A.01 Less than 8 weeks gestation of pregnancy; Z91.040 Latex allergy status; Z97.5 Presence of (intrauterine) contraceptive device; Z88.1 Allergy status to other antibiotic agents; Z87.891 Personal history of nicotine dependence
CPT/HCPCS: 36415; 76801; 76817; 81001; 81025; 84702; 85025; 86900; 86901; 96360; 99284

== ENCOUNTER → 2021-04-14 | Outpatient (CLI) | payer OTHER | END | disposition home or self-care (01) | LOC: LABMAIN 10:00 | PROVIDERS: ATTEND Nurse Practitioner Family | DX: O00.90 Unspecified ectopic pregnancy without intrauterine pregnancy (principal) | CPT/HCPCS: 36415; 84702 ==

== ENCOUNTER → 2021-04-15 | Outpatient (CLI) | payer OTHER | END | disposition home or self-care (01) | LOC: LABWHC1 13:14 | PROVIDERS: ATTEND Obstetrics & Gynecology | DX: Z53.9 Procedure and treatment not carried out, unspecified reason (principal) ==

== ENCOUNTER → 2021-04-15 | Outpatient (CLI) | payer OTHER ==
[~2021-04-15] MED LIST: METHOTREXATE SODIUM (PF) 25 MG/ML 2 ML VIAL IM NR
[2021-04-15 14:42] VITALS: BP 92/59; PULSE 80; RESP 16; TEMP 98.2
[2021-04-15 15:14] LABS: HCG,Quantitative Serum 213.4 mIU/mL
== END ==
LOC: PROCWHC3 13:00
PROVIDERS: ATTEND Obstetrics & Gynecology
DX: O00.90 Unspecified ectopic pregnancy without intrauterine pregnancy (principal); Z3A.00 Weeks of gestation of pregnancy not specified; Z91.040 Latex allergy status; Z88.8 Allergy status to other drugs, medicaments and biological substances; Z91.018 Allergy to other foods
CPT/HCPCS: 84450; 84460; 84702; 36415; 96402; J9260

== ENCOUNTER → 2021-04-19 | Outpatient (CLI) | payer OTHER | END | disposition home or self-care (01) | LOC: LABWHC1 10:44 | PROVIDERS: ATTEND Obstetrics & Gynecology | DX: O00.90 Unspecified ectopic pregnancy without intrauterine pregnancy (principal); Z3A.00 Weeks of gestation of pregnancy not specified | CPT/HCPCS: 36415; 84702 ==

== ENCOUNTER → 2021-04-22 | Outpatient (CLI) | payer OTHER | END | disposition home or self-care (01) | LOC: LABWHC1 10:02 | PROVIDERS: ATTEND Obstetrics & Gynecology | DX: O00.90 Unspecified ectopic pregnancy without intrauterine pregnancy (principal); Z3A.00 Weeks of gestation of pregnancy not specified | CPT/HCPCS: 36415; 84702 ==

== ENCOUNTER → 2021-05-02 | Outpatient (CLI) | payer OTHER | END | disposition home or self-care (01) | LOC: LABWHC1 12:26 | PROVIDERS: ATTEND Obstetrics & Gynecology | DX: O00.90 Unspecified ectopic pregnancy without intrauterine pregnancy (principal); Z3A.00 Weeks of gestation of pregnancy not specified | CPT/HCPCS: 36415; 84702 ==

== ENCOUNTER 2022-05-09 07:22 | Emergency (ER) | payer OTHER ==
[2022-05-09 07:30] VITALS: RESP 18
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
[2022-05-09 09:13] VITALS: BP 112/72; PULSE 88; TEMP 98.6
== END 2022-05-09 09:15 | disposition home or self-care (01) ==
LOC: EC 07:22
DX: S09.90XA Unspecified injury of head, initial encounter (principal); F31.9 Bipolar disorder, unspecified; F12.90 Cannabis use, unspecified, uncomplicated; Z91.011 Allergy to milk products; Z87.891 Personal history of nicotine dependence; Z91.040 Latex allergy status; V89.2XXA Person injured in unspecified motor-vehicle accident, traffic, initial encounter; Y92.410 Unspecified street and highway as the place of occurrence of the external cause
CPT/HCPCS: 70450; 72125; 81025; 99284

== ENCOUNTER 2022-09-05 15:47 | Emergency (ER) | payer OTHER ==
[2022-09-05 16:26] VITALS: TEMP 98
[2022-09-05] MEDS ORDERED: IBUPROFEN 600 MG TAB PO STA (16:38)
--- NOTE | 2022-09-05 17:12 | XR ---
EXAMINATION TYPE: XR hand complete RT DATE OF EXAM: 09/05/2022 COMPARISON: NONE HISTORY: Pain TECHNIQUE: 4 views FINDINGS: There is slightly impacted transverse fracture of the distal fifth metacarpal. No dislocati on. Fingers are intact. Carpal bones are intact. IMPRESSION: There is acute slightly impacted boxer fracture of the distal fifth metacarpal.
[2022-09-05] MEDS ORDERED: ACET/COD 300 MG/30 MG STARTER PACK 6 TAB BTL PO STA (17:35)
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
[2022-09-05 18:03] VITALS: BP 126/76; PULSE 72; RESP 14
== END 2022-09-05 18:03 | disposition home or self-care (01) ==
LOC: EC 15:47
DX: S62.316A Displaced fracture of base of fifth metacarpal bone, right hand, initial encounter for closed fracture (principal); F31.9 Bipolar disorder, unspecified; F17.290 Nicotine dependence, other tobacco product, uncomplicated; F12.90 Cannabis use, unspecified, uncomplicated; Z91.040 Latex allergy status; Z88.8 Allergy status to other drugs, medicaments and biological substances; W21.00XA Struck by hit or thrown ball, unspecified type, initial encounter; Y92.091 Bathroom in other non-institutional residence as the place of occurrence of the external cause
CPT/HCPCS: 29125; 99283

== ENCOUNTER 2023-07-30 06:31 | Emergency (ER) | payer OTHER ==
[2023-07-30 06:48] VITALS: RESP 16
[2023-07-30] MEDS: ACETAMINOPHEN TAB 325 MG TAB PO STA (07:31)
[2023-07-30] MEDS: ONDANSETRON ODT 4 MG TAB PO STA (07:31)
--- NOTE | 2023-07-30 07:53 | ED ---
Nausea/Vomiting/Diarrhea HPI - General Chief complaint: Nausea/Vomiting/Diarrhea Stated complaint: vomiting; cough Time Seen by Provider: 07/30/23 06:32 Source: patient, RN notes reviewed Mode of arrival: ambulatory Limitations: no limitations - History of Present Illness Initial comments: 23-year-old female presents emergency department with chief complaint of fever chills cough congestion body aches nausea vomiting. States that she has had several episodes of vomiting states her kids are sick with similar symptoms. Patient reports fever she has not taken any antipyretics. Denies any localized abdominal pain no chest pain denies ear pain just complained of mild headache. - Related Data Home Medications Medication Instructions Recorded Confirmed lamoTRIgine [LaMICtal] 25 mg PO HS 05/09/22 05/09/22 lamoTRIgine [LaMICtal] 200 mg PO HS 05/09/22 05/09/22 Previous Rx's Medication Instructions Recorded Ibuprofen [Motrin] 800 mg PO Q8HR PRN #30 tab 09/05/22 Ondansetron Odt [Zofran Odt] 4 mg PO Q8HR PRN #10 tab 07/30/23 Allergies Allergy/AdvReac Type Severity Reaction Status Date / Time latex Allergy Rash/Hives Verified 07/30/23 06:41 lactose AdvReac Abdominal Verified 07/30/23 06:41 Pain metoclopramide [From Reglan] AdvReac Chest Pain Verified 07/30/23 06:41 Review of Systems ROS Statement: Those systems with pertinent positive or pertinent negative responses have been documented in the HPI. ROS Other: All systems not noted in ROS Statement are negative. Past Medical History Past Medical History: No Reported History, Blood Disorder, Fibromyalgia Additional Past Medical History / Comment(s): anemia, fibromyalgia, History of Any Multi-Drug Resistant Organisms: None Reported Past Surgical History: Ear Surgery Past Anesthesia/Blood Transfusion Reactions: No Reported Reaction Past Psychological History: Bipolar Smoking Status: Former smoker, Vaper Past Alcohol Use History: None Reported Past Drug Use History: Marijuana - Past Family History Father Family Medical History: No Reported History General Exam Limitations: no limitations General appearance: alert, in no apparent distress Head exam: Present: atraumatic, normocephalic, normal inspection Eye exam: Present: normal appearance, PERRL, EOMI. Absent: scleral icterus, conjunctival injection, periorbital swelling ENT exam: Present: normal exam, normal oropharynx, mucous membranes moist Neck exam: Present: normal inspection, full ROM. Absent: tenderness, meningismus, lymphadenopathy Respiratory exam: Present: normal lung sounds bilaterally. Absent: respiratory distress, wheezes, rales, rhonchi, stridor Cardiovascular Exam: Present: regular rate, normal rhythm, normal heart sounds. Absent: systolic murmur, diastolic murmur, rubs, gallop, clicks GI/Abdominal exam: Present: soft, normal bowel sounds. Absent: distended, tenderness, guarding, rebound, rigid Course Vital Signs 07/30/23 07/30/23 06:39 08:17 Temperature 99.7 F H 98 F Pulse Rate 100 80 Respiratory 16 16 Rate Blood Pressure 96/59 124/78 O2 Sat by Pulse 97 98 Oximetry Medical Decision Making - Medical Decision Making Was pt. sent in by a medical professional or institution (, [facility], [facility], urgent care, hospital, or [facility]...) When possible be specific @ -No Did you speak to anyone other than the patient for history (EMS, parent, family, police, friend...)? What history was obtained from this source @ -No Did you review nursing and triage notes (agree or disagree)? Why? @ -I reviewed and agree with nursing and triage notes Were old charts reviewed (outside hosp., previous admission, EMS record, old EKG, old radiological studies, urgent care reports/EKG's, [facility] records)? Report findings @ -No old charts were reviewed Differential Diagnosis (chest pain, altered mental status, abdominal pain women, abdominal pain men, vaginal bleeding, weakness, fever, dyspnea, syncope, headache, dizziness, GI bleed, back pain, seizure, CVA, palpatations, mental health, musculoskeletal)? @ -[COVID 19, RSV, influenza, pneumonia, acute bronchitis, URI, this list is not all inclusive EKG interpreted by me (3pts min.). @ -None X-rays interpreted by me (1pt min.). @ -None done CT interpreted by me (1pt min.). @ -None done U/S interpreted by me (1pt. min.). @ -None done What testing was considered but not performed or refused? (CT, X-rays, U/S, labs)? Why? @ -None What meds were considered but not given or refused? Why? @ -None Did you discuss the management of the patient with other professionals (professionals i.e. , PA, [facility], lab, RT, psych nurse, social services aide, salesperson toy trains and accessories, teacher, tactical deception plans officer, manager case)? Give summary @ -No Was smoking cessation discussed for >3mins.? @ -No Was critical care preformed (if so, how long)? @ -No Were there social determinants of health that impacted care today? How? (Homelessness, low income, unemployed, alcoholism, drug addiction, transportation, low edu. Level, literacy, decrease access to med. care, half-way, rehab)? @ -No Was there de-escalation of care discussed even if they declined (Discuss DNR or withdrawal of care, Hospice)? DNR status @ -No What co-morbidities impacted this encounter? (DM, HTN, Smoking, COPD, CAD, Cancer, CVA, ARF, Chemo, Hep., AIDS, mental health diagnosis, sleep apnea, morbid obesity)? @ -None Was patient admitted / discharged? Hospital course, mention meds given and route, prescriptions, significant lab abnormalities, going to OR and other pertinent info. @ -Discharged patient son is influenza A positive here at same time she has very similar symptoms but tested negative for discussed more likely that she has influenza A supportive treatment will be started return parameters are discussed. Undiagnosed new problem with uncertain prognosis? @ -No Drug Therapy requiring intensive monitoring for toxicity (Heparin, Nitro, Insulin, Cardizem)? @ -No Were any procedures done? @ -No Diagnosis/symptom? @ -Influenza A Acute, or Chronic, or Acute on Chronic? @ -acute Uncomplicated (without systemic symptoms) or Complicated (systemic symptoms)? @ -uncomplicated Side effects of treatment? @ -No Exacerbation, Progression, or Severe Exacerbation? @ -No Poses a threat to life or bodily function? How? (Chest pain, [place], [place], pneumonia, PE, COPD, DKA, ARF, appy, cholecystitis, CVA, Diverticulitis, Homicidal, Suicidal, threat to staff... and all critical care pts) @ -No - Lab Data Lab Results 07/30/23 Range/Units 06:54 Influenza Type A (PCR) Not Detected (Not Detectd) Influenza Type B (PCR) Not Detected (Not Detectd) RSV (PCR) Not Detected (Not Detectd) SARS-CoV-2 (PCR) Not Detected (Not Detectd) Disposition Clinical Impression: Influenza Disposition: HOME SELF-CARE Condition: Stable Instructions (If sedation given, give patient instructions): Influenza (ED) Additional Instructions: Please return to the Emergency Department if symptoms worsen or any other concerns. Prescriptions: Ondansetron Odt [Zofran Odt] 4 mg PO Q8HR PRN #10 tab PRN Reason: Nausea Is patient prescribed a controlled substance at d/c from ED?: No Referrals: None,Stated [Primary Care Provider] - 1-2 days Time of Disposition: 07:53
[2023-07-30 08:22] VITALS: BP 124/78; PULSE 80; TEMP 98
== END 2023-07-30 08:16 | disposition home or self-care (01) ==
LOC: EC 06:31
DX: J11.1 Influenza due to unidentified influenza virus with other respiratory manifestations (principal); F17.290 Nicotine dependence, other tobacco product, uncomplicated; F12.90 Cannabis use, unspecified, uncomplicated; Z20.822 Contact with and (suspected) exposure to COVID-19; Z88.8 Allergy status to other drugs, medicaments and biological substances; Z91.040 Latex allergy status; Z91.011 Allergy to milk products
CPT/HCPCS: 87636; 99284

== ENCOUNTER 2023-07-30 18:27 | Emergency (ER) | payer OTHER ==
--- NOTE | 2023-07-30 18:52 | ED ---
Nausea/Vomiting/Diarrhea HPI - General Source: patient, RN notes reviewed Mode of arrival: ambulatory Limitations: no limitations - History of Present Illness MD complaint: nausea, vomiting <Edelmira Wells - Last Filed: 07/30/23 18:51> <Venice Mahan - Last Filed: 07/31/23 11:28> - General Chief complaint: Nausea/Vomiting/Diarrhea Stated complaint: Vomiting,abd pain Time Seen by Provider: 07/30/23 18:51 - History of Present Illness Initial comments: This is a 23-year-old female who presents to the emergency department for nausea and vomiting. Patient was evaluated here earlier today for this complaint and diagnosed with influenza. She was given a prescription for Zofran, however she states that this has not been effective. (Edelmira Wells) 23-year-old female presents to the emergency department for evaluation of nausea and vomiting. Patient states that she was evaluated earlier today for similar issues including congestion, muscle aches, cough. Other people in her household have the same symptoms. She states that her son was diagnosed with influenza A and therefore although her test was negative earlier today she likely has the s raf thing. She states that she was given Zofran earlier today but this has not been helping and she continues to have vomiting. Denies fever but admits to chills. (Venice Mahan) - Related Data Home Medications Medication Instructions Recorded Confirmed lamoTRIgine [LaMICtal] 25 mg PO HS 05/09/22 05/09/22 lamoTRIgine [LaMICtal] 200 mg PO HS 05/09/22 05/09/22 Previous Rx's Medication Instructions Recorded Ibuprofen [Motrin] 800 mg PO Q8HR PRN #30 tab 09/05/22 Ondansetron Odt [Zofran Odt] 4 mg PO Q8HR PRN #10 tab 07/30/23 Allergies Allergy/AdvReac Type Severity Reaction Status Date / Time latex Allergy Rash/Hives Verified 07/30/23 19:18 lactose AdvReac Abdominal Verified 07/30/23 19:18 Pain metoclopramide [From Reglan] AdvReac Chest Pain Verified 07/30/23 19:18 Review of Systems ROS Other: All systems not noted in ROS Statement are negative. <Edelmira Wells - Last Filed: 07/30/23 18:51> ROS Other: All systems not noted in ROS Statement are negative. <Venice Mahan - Last Filed: 07/31/23 11:28> ROS Statement: Those systems with pertinent positive or pertinent negative responses have been documented in the HPI. Past Medical History Past Medical History: No Reported History, Blood Disorder, Fibromyalgia Additional Past Medical History / Comment(s): anemia, fibromyalgia, History of Any Multi-Drug Resistant Organisms: None Reported Past Surgical History: Ear Surgery Past Anesthesia/Blood Transfusion Reactions: No Reported Reaction Past Psychological History: Bipolar Smoking Status: Former smoker, Vaper Past Alcohol Use History: None Reported Past Drug Use History: Marijuana - Past Family History Father Family Medical History: No Reported History <Edelmira Wells - Last Filed: 07/30/23 18:51> General Exam <Edelmira Wells - Last Filed: 07/30/23 18:51> Limitations: no limitations General appearance: alert, in no apparent distress Head exam: Present: atraumatic, normocephalic, normal inspection Eye exam: Present: normal appearance, PERRL, EOMI. Absent: scleral icterus, conjunctival injection, periorbital swelling ENT exam: Present: mucous membranes dry Neck exam: Present: normal inspection. Absent: tenderness, meningismus, lymphadenopathy Respiratory exam: Present: normal lung sounds bilaterally. Absent: respiratory distress, wheezes, rales, rhonchi, stridor Cardiovascular Exam: Present: regular rate, normal rhythm, normal heart sounds. Absent: systolic murmur, diastolic murmur, rubs, gallop, clicks GI/Abdominal exam: Present: soft, normal bowel sounds. Absent: distended, tenderness, guarding, rebound, rigid Extremities exam: Present: normal inspection, full ROM, normal capillary refill. Absent: tenderness, pedal edema, joint swelling, calf tenderness Back exam: Present: normal inspection Neurological exam: Present: alert, oriented X3 Psychiatric exam: Present: normal affect, normal mood Skin exam: Present: warm, dry, intact, normal color. Absent: rash <Venice Mahan - Last Filed: 07/31/23 11:28> - General Exam Comments Initial Comments: Visual Physical Exam Vital signs reviewed General: Well-appearing, nontoxic, no acute distress. Head: Normocephalic, atraumatic Eyes: PERRLA, EOMI ENT: Airway patent Chest: Nonlabored breathing Skin: No visual rash, normal skin tone Neuro: Alert and oriented 3 Musculoskeletal: No gross abnormalities (Edelmira Wells) Course Vital Signs 07/30/23 07/31/23 07/31/23 19:17 00:14 01:01 Temperature 99.2 F 99.5 F Pulse Rate 106 H 89 96 Respiratory 16 16 16 Rate Blood Pressure 111/69 100/56 100/50 O2 Sat by Pulse 99 97 97 Oximetry Medical Decision Making <Edelmira Wells - Last Filed: 07/30/23 18:51> - Lab Data Result diagrams: 07/30/23 23:12 07/30/23 23:12 <Venice Mahan - Last Filed: 07/31/23 11:28> - Medical Decision Making I performed the QuickNote portion of this chart. Signed Edelmira Wells PA-C. (Edelmira Wells) Was pt. sent in by a medical professional or institution ([facility] Parker, INTERNET ECOMMERCE SPECIALIST, urgent care, hospital, or [place]...) When possible be specific @ -No Did you speak to anyone other than the patient for history (EMS, parent, family, police, friend...)? What history was obtained from this source @ -No Did you review nursing and triage notes (agree or disagree)? Why? @ -I reviewed and agree with nursing and triage notes Were old charts reviewed (outside hosp., previous admission, EMS record, old EKG, old radiological studies, urgent care reports/EKG's, [place] health [place] records)? Report findings @ -No old charts were reviewed Differential Diagnosis (chest pain, altered mental status, abdominal pain women, abdominal pain men, vaginal bleeding, weakness, fever, dyspnea, syncope, hea dache, dizziness, GI bleed, back pain, seizure, CVA, palpatations, mental health, musculoskeletal)? @ -Influenza, COVID, RSV, gastroenteritis, this list is not all inclusive EKG interpreted by me (3pts min.). @ -None X-rays interpreted by me (1pt min.). @ -None done CT interpreted by me (1pt min.). @ -None done U/S interpreted by me (1pt. min.). @ -None done What testing was considered but not performed or refused? (CT, X-rays, U/S, labs)? Why? @ -None What meds were considered but not given or refused? Why? @ -None Did you discuss the management of the patient with other professionals (professionals i.e. , PA, INTERNET ECOMMERCE SPECIALIST, lab, RT, psych nurse, social service technician, auto collision repair instructor, teacher, infantry officer, case coordinator)? Give summary @ -No Was smoking cessation discussed for >3mins.? @ -No Was critical care preformed (if so, how long)? @ -No Were there social determinants of health that impacted care today? How? (Homelessness, low income, unemployed, alcoholism, drug addiction, transportation, low edu. Level, literacy, decrease access to med. care, halfway, rehab)? @ -No Was there de-escalation of care discussed even if they declined (Discuss DNR or withdrawal of care, Hospice)? DNR status @ -No What co-morbidities impacted this encounter? (DM, HTN, Smoking, COPD, CAD, Cancer, CVA, ARF, Chemo, Hep., AIDS, mental health diagnosis, sleep apnea, morbid obesity)? @ -None Was patient admitted / discharged? Hospital course, mention meds given and route, prescriptions, significant lab abnormalities, going to OR and other pertinent info. @ -Discharge. Patient presented to the emergency department for continued nausea and vomiting. Laboratory studies obtained. CBC shows WBC 8.1, hemoglobin 12.4; CMP shows sodium 134 potassium 3.7, creatinine 0.69; UA shows trace protein, 4+ ketones likely secondary to vomiting and dehydration. Patient was provided 1.5 L normal saline, Zofran, Tylenol. This improved her symptoms somewhat. Patient given a dose of Toradol and Compazine prior to discharge. Patient is able to tolerate p.o. intake patient will be discharged home and advised to utilize her Zofran that she was provided earlier today. Patient understanding agreeable with discharge plan. Patient stable at time of discharge. Undiagnosed new problem with uncertain prognosis? @ -No Drug Therapy requiring intensive monitoring for toxicity (Heparin, Nitro, Insulin, Cardizem)? @ -No Were any procedures done? @ -No Diagnosis/symptom? @ -Nausea and vomiting Acute, or Chronic, or Acute on Chronic? @ -Acute Uncomplicated (without systemic symptoms) or Complicated (systemic symptoms)? @ -Uncomplicated Side effects of treatment? @ -No Exacerbation, Progression, or Severe Exacerbation? @ -No Poses a threat to life or bodily function? How? (Chest pain, [place], [place], pneumonia, PE, COPD, DKA, ARF, appy, cholecystitis, CVA, Diverticulitis, Homicidal, Suicidal, threat to staff... and all critical care pts) @ -No (Venice Mahan) - Lab Data Lab Results 07/30/23 07/30/23 07/31/23 Range/Units 23:12 23:12 01:01 WBC 8.1 (3.8-10.6) k/uL RBC 4.51 (3.80-5.40) m/uL Hgb 12.4 (11.4-16.0) gm/dL Hct 37.2 (34.0-46.0) % MCV 82.6 (80.0-100.0) fL MCH 27.6 (25.0-35.0) pg MCHC 33.4 (31.0-37.0) g/dL RDW 13.3 (11.5-15.5) % Plt Count 158 (150-450) k/uL MPV 8.4 Neutrophils % 91 % Lymphocytes % 4 % Monocytes % 4 % Eosinophils % 0 % Basophils % 0 % Neutrophils # 7.4 (1.3-7.7) k/uL Lymphocytes # 0.3 L (1.0-4.8) k/uL Monocytes # 0.3 (0-1.0) k/uL Eosinophils # 0.0 (0-0.7) k/uL Basophils # 0.0 (0-0.2) k/uL Sodium 134 L (137-145) mmol/L Potassium 3.7 (3.5-5.1) mmol/L Chloride 102 (98-107) mmol/L Carbon Dioxide 22 (22-30) mmol/L Anion Gap 10 mmol/L BUN 19 H (7-17) mg/dL Creatinine 0.69 (0.52-1.04) mg/dL Est GFR (CKD-EPI)AfAm >90 (>60 ml/min/1.73 sqM) Est GFR (CKD-EPI)NonAf >90 (>60 ml/min/1.73 sqM) Glucose 90 (74-99) mg/dL Calcium 9.1 (8.4-10.2) mg/dL Total Bilirubin 0.5 (0.2-1.3) mg/dL AST 22 (14-36) U/L ALT 13 (4-34) U/L Alkaline Phosphatase 64 (38-126) U/L Total Protein 7.7 (6.3-8.2) g/dL Albumin 4.6 (3.5-5.0) g/dL Lipase 16 L (23-300) U/L HCG, Quant <2.4 mIU/mL Urine Color Light Yellow Urine Appearance Clear (Clear) Urine pH 6.5 (5.0-8.0) Ur Specific [place] 1.018 (1.001-1.035) Urine Protein Trace H (Negative) Urine Glucose (UA) Negative (Negative) Urine Ketones 4+ H (Negative) Urine Blood Large H (Negative) Urine Nitrite Negative (Negative) Urine Bilirubin Negative (Negative) Urine Urobilinogen <2.0 (<2.0) mg/dL Ur Leukocyte Esterase Negative (Negative) Urine RBC 66 H (0-5) /hpf Urine WBC 3 (0-5) /hpf Ur Squamous Epith Cells 2 (0-4) /hpf Amorphous Sediment Rare H (None) /hpf Urine Bacteria Occasional H (None) /hpf Hyaline Casts 1 (0-2) /lpf Urine Mucus Moderate H (None) /hpf Disposition <Edelmira Wells - Last Filed: 07/30/23 18:51> Is patient prescribed a controlled substance at d/c from ED?: No <Venice Mahan - Last Filed: 07/31/23 11:28> Clinical Impression: Influenza, Nausea & vomiting Disposition: HOME SELF-CARE Condition: Stable Referrals: None,Stated [Primary Care Provider] - 1-2 days
[2023-07-30 19:21] VITALS: RESP 16
[2023-07-30] MEDS: SODIUM CHLORIDE 0.9% 1,000 ML IV STA (23:20)
[2023-07-30] MEDS: SODIUM CHLORIDE 0.9% 500 ML 500 ML IV STA (23:20)
[2023-07-30] MEDS: ACETAMINOPHEN TAB 500 MG TAB PO STA (23:24)
[2023-07-30] MEDS: ONDANSETRON 4 MG/2 ML VIAL IVP STA (23:24)
[2023-07-30 23:42] LABS: Basophils % (A) 0 %; Eosinophils % (A) 0 %; HCT 37.2 % (34.0-46.0); HGB 12.4 gm/dL (11.4-16.0); Lymphocytes # (A) 0.3 k/uL (1.0-4.8); Lymphocytes % (A) 4 %; MCH 27.6 pg (25.0-35.0); MCHC 33.4 g/dL (31.0-37.0); MCV 82.6 fL (80.0-100.0); Mean Platelet Volume 8.4; Monocytes # (A) 0.3 k/uL (0-1.0); Monocytes % (A) 4 %; Neutrophils # (A) 7.4 k/uL (1.3-7.7); Neutrophils % (A) 91 %; Platelet Count 158 k/uL (150-450); RBC 4.51 m/uL (3.80-5.40); RDW 13.3 % (11.5-15.5); WBC 8.1 k/uL (3.8-10.6)
[2023-07-30 23:54] LABS: ALT 13 U/L (4-34); AST 22 U/L (14-36); African American GFR (CKD) >90 (>60 ml/min/1.73 sqM); Albumin 4.6 g/dL (3.5-5.0); Alkaline Phosphatase 64 U/L (38-126); Anion Gap 10 mmol/L; Blood Urea Nitrogen 19 mg/dL (7-17); Calcium 9.1 mg/dL (8.4-10.2); Carbon Dioxide 22 mmol/L (22-30); Chloride 102 mmol/L (98-107); Glucose 90 mg/dL (74-99); Lipase 16 U/L (23-300); Non-African American GFR(CKD) >90 (>60 ml/min/1.73 sqM); Potassium 3.7 mmol/L (3.5-5.1); Sodium 134 mmol/L (137-145); Total Bilirubin 0.5 mg/dL (0.2-1.3); Total Protein 7.7 g/dL (6.3-8.2)
[2023-07-31 00:09] LABS: HCG,Quantitative Serum <2.4 mIU/mL
[2023-07-31] MEDS: KETOROLAC 15 MG/ML 1 ML VIAL IVP STA (00:30)
[2023-07-31] MEDS: PROCHLORPERAZINE INJ 10 MG/2 ML VIAL IVP STA (00:30)
[2023-07-31 01:11] LABS: Amorphous Sediment,Urine Rare /hpf; Appearance,Urine Clear (Clear); Bacteria,Urine Occasional /hpf; Bilirubin,Urine Negative (Negative); Blood,Urine Large (Negative); Color,Urine Light Yellow; Glucose,Urine (UA) Negative (Negative); Hyaline Casts,Urine 1 /lpf (0-2); Ketones,Urine 4+ (Negative); Leukocyte Esterase,Urine Negative (Negative); Mucus,Urine Moderate /hpf; Nitrite,Urine Negative (Negative); PH, Urine 6.5 (5.0-8.0); Protein,Urine Trace (Negative); RBC,Urine 66 /hpf (0-5); Specific Gravity,Urine 1.018 (1.001-1.035); Squamous Epithelial Cell,Urine 2 /hpf (0-4); Urobilinogen,Urine <2.0 mg/dL (<2.0); WBC,Urine 3 /hpf (0-5)
[2023-07-31 01:14] VITALS: BP 100/50; PULSE 96; TEMP 99.5
== END 2023-07-31 01:02 | disposition home or self-care (01) ==
LOC: EC 18:27
DX: J11.1 Influenza due to unidentified influenza virus with other respiratory manifestations (principal); F31.9 Bipolar disorder, unspecified; F17.290 Nicotine dependence, other tobacco product, uncomplicated; F12.90 Cannabis use, unspecified, uncomplicated; Z79.899 Other long term (current) drug therapy; Z88.8 Allergy status to other drugs, medicaments and biological substances; Z91.011 Allergy to milk products; Z91.040 Latex allergy status
CPT/HCPCS: 99284; 96374; 96375 ×2; 96361; 36415; 80053; 83690; 85025; 81001; 84702; J0780; J2405; J1885

== ENCOUNTER 2024-06-11 04:40 | Emergency (ER) | payer OTHER ==
[2024-06-11 04:46] VITALS: TEMP 98.3
--- NOTE | 2024-06-11 05:04 | ED ---
Nausea/Vomiting/Diarrhea HPI - General Chief complaint: Nausea/Vomiting/Diarrhea Stated complaint: Nausea Vomiting Time Seen by Provider: 06/11/24 05:01 Source: patient, RN notes reviewed, old records reviewed Mode of arrival: ambulatory Limitations: no limitations - History of Present Illness Initial comments: This is a 24 female with nausea vomiting body aches pains not feeling well. No chance no recent travel history or sick contact patient is has not been feeling well with nausea vomiting recent diagnosis of coronavirus MD complaint: nausea, vomiting -: days(s) Location: diffuse Severity: mild Severity scale (1-10): 2 Quality: aching Consistency: constant Improves with: none Worsens with: none Associated Symptoms: loss of appetite, malaise, nausea/vomiting, weakness - Related Data Home Medications Medication Instructions Recorded Confirmed lamoTRIgine [LaMICtal] 25 mg PO HS 05/09/22 05/09/22 lamoTRIgine [LaMICtal] 200 mg PO HS 05/09/22 05/09/22 Previous Rx's Medication Instructions Recorded Ibuprofen [Motrin] 800 mg PO Q8HR PRN #30 tab 09/05/22 Ondansetron Odt [Zofran Odt] 4 mg PO Q8HR PRN #10 tab 07/30/23 Allergies Allergy/AdvReac Type Severity Reaction Status Date / Time latex Allergy Rash/Hives Verified 06/11/24 04:48 lactose AdvReac Abdominal Verified 06/11/24 04:48 Pain metoclopramide [From Reglan] AdvReac Chest Pain Verified 06/11/24 04:48 Review of Systems ROS Statement: Those systems with pertinent positive or pertinent negative responses have been documented in the HPI. ROS Other: All systems not noted in ROS Statement are negative. Past Medical History Past Medical History: No Reported History, Blood Disorder, Fibromyalgia Additional Past Medical History / Comment(s): anemia, fibromyalgia, History of Any Multi-Drug Resistant Organisms: None Reported Past Surgical History: Ear Surgery Past Anesthesia/Blood Transfusion Reactions: No Reported Reaction Past Psychological History: Bipolar Smoking Status: Former smoker, Vaper Past Alcohol Use History: None Reported Past Drug Use History: Marijuana - Past Family History Father Family Medical History: No Reported History General Exam Limitations: no limitations General appearance: alert, in no apparent distress Head exam: Present: atraumatic, normocephalic, normal inspection Eye exam: Present: normal appearance, PERRL, EOMI. Absent: scleral icterus, conjunctival injection, periorbital swelling ENT exam: Present: normal exam, mucous membranes moist Neck exam: Present: normal inspection. Absent: tenderness, meningismus, lymphadenopathy Respiratory exam: Present: normal lung sounds bilaterally. Absent: respiratory distress, wheezes, rales, rhonchi, stridor Cardiovascular Exam: Present: regular rate, normal rhythm, normal heart sounds. Absent: systolic murmur, diastolic murmur, rubs, gallop, clicks GI/Abdominal exam: Present: soft, normal bowel sounds. Absent: distended, tenderness, guarding, rebound, rigid Extremities exam: Present: normal inspection, full ROM, normal capillary refill. Absent: tenderness, pedal edema, joint swelling, calf tenderness Back exam: Present: normal inspection Neurological exam: Present: alert, oriented X3, CN II-XII intact Psychiatric exam: Present: normal affect, normal mood Skin exam: Present: warm, dry, intact, normal color. Absent: rash Course Vital Signs 06/11/24 06/11/24 04:43 06:36 Temperature 98.3 F Pulse Rate 97 68 Respiratory 18 15 Rate Blood Pressure 94/56 98/61 O2 Sat by Pulse 98 98 Oximetry - Reevaluation(s) Reevaluation #1: Medical records reviewed Reevaluation #2: Symptoms improved Reevaluation #3: Patient informed of results questions answered Reevaluation #4: Was pt. sent in by a medical professional or institution (, PA, TELECOMMUNICATIONS OFFICER, urgent care, hospital, or [place]...) When possible be specific @ -no Did you speak to anyone other than the patient for history (EMS, parent, family, police, friend...)? What history was obtained from this source @ -no Did you review nursing and triage notes (agree or disagree)? Why? @ -agree Are old charts reviewed (outside hosp., previous admission, EMS record, old EKG, old radiological studies, urgent care reports/EKG's, [place] [facility] [place] records)? Report findings @ -yes Differential Diagnosis (chest pain, altered mental status, abdominal pain women, abdominal pain men, vaginal bleeding, weakness, fever, dyspnea, syncope, headac he, dizziness, GI bleed, back pain, seizure, CVA, palpatations, mental health, musculoskeletal)? @ -prior EKG interpreted by me (3pts min.). @ -no X-rays interpreted by me (1pt min.). @ -no CT interpreted by me (1pt min.). @ -no U/S interpreted by me (1pt. min.). @ -no What testing was considered but not performed or refused? (CT, X-rays, U/S, labs)? Why? @ -none What meds were considered but not given or refused? Why? @ -none Did you discuss the management of the patient with other professionals (professionals i.e. , PA, TELECOMMUNICATIONS OFFICER, lab, RT, psych nurse, social services manager, ceiling installer, teacher, correctional security officer, case managers)? Give summary @ -no Was smoking cessation discussed for >3mins.? @ -no Was critical care preformed (if so, how long)? @ -no Were there social determinants of health that impacted care today? How? (Homelessness, low income, unemployed, alcoholism, drug addiction, transpo rtation, low edu. Level, literacy, decrease access to med. care, [facility], rehab)? @ -none Was there de-escalation of care discussed even if they declined (Discuss DNR or withdrawal of care, Hospice)? DNR status @ -no What co-morbidities impacted this encounter? (DM, HTN, Smoking, COPD, CAD, Cancer, CVA, ARF, Chemo, Hep., AIDS, mental health diagnosis, sleep apnea, morbid obesity)? @ -none Was patient admitted / discharged? Hospital course, mention meds given and route, prescriptions, significant lab abnormalities, going to OR and other pertinent info. @ - 24 female to ER for evaluation of acute illness, nausea vomiting not feeling well positive for coronavirus patient can be discharged home if symptoms are resolved or improving Discharge Undiagnosed new problem with uncertain prognosis? @ -no Drug Therapy requiring intensive monitoring for toxicity (Heparin, Nitro, Insulin, Cardizem)? @ -no Were any procedures done? @ -no Diagnosis/symptom? @ -Coronavirus Acute, or Chronic, or Acute on Chronic? @ -Acute Uncomplicated (without systemic symptoms) or Complicated (systemic symptoms)? @ -Complicated Side effects of treatment? @ -no Exacerbation, Progression, or Severe Exacerbation? @ -exacerbation Poses a threat to life or bodily function? How? (Chest pain, [place], [place], pneumonia, PE, COPD, DKA, ARF, appy, cholecystitis, CVA, Diverticulitis, Homicidal, Suicidal, threat to staff... and all critical care pts) @ -no Medical Decision Making - Medical Decision Making 24 female to ER for evaluation of acute illness, nausea vomiting not feeling well positive for coronavirus patient can be discharged home if symptoms are resolved or improving - Lab Data Result diagrams: 06/11/24 05:06 06/11/24 05:06 Lab Results 06/11/24 06/11/24 06/11/24 Range/Units 05:06 05:06 05:20 WBC 7.5 (3.8-10.6) k/uL RBC 4.41 (3.80-5.40) m/uL Hgb 11.9 (11.4-16.0) gm/dL Hct 36.7 (34.0-46.0) % MCV 83.0 (80.0-100.0) fL MCH 26.9 (25.0-35.0) pg MCHC 32.4 (31.0-37.0) g/dL RDW 13.8 (11.5-15.5) % Plt Count 200 (150-450) k/uL MPV 8.4 Neutrophils % 88 % Lymphocytes % 7 % Monocytes % 3 % Eosinophils % 1 % Basophils % 0 % Neutrophils # 6.6 (1.3-7.7) k/uL Lymphocytes # 0.5 L (1.0-4.8) k/uL Monocytes # 0.2 (0-1.0) k/uL Eosinophils # 0.1 (0-0.7) k/uL Basophils # 0.0 (0-0.2) k/uL Sodium 137 (137-145) mmol/L Potassium 3.9 (3.5-5.1) mmol/L Chloride 108 H (98-107) mmol/L Carbon Dioxide 24 (22-30) mmol/L Anion Gap 5 mmol/L BUN 21 H (7-17) mg/dL Creatinine 0.67 (0.52-1.04) mg/dL Est GFR (CKD-EPI)AfAm >90 (>60 ml/min/1.73 sqM) Est GFR (CKD-EPI)NonAf >90 (>60 ml/min/1.73 sqM) Glucose 106 H (74-99) mg/dL Calcium 9.0 (8.4-10.2) mg/dL Phosphorus 4.1 (2.5-4.5) mg/dL Magnesium 1.9 (1.6-2.3) mg/dL Total Bilirubin 0.5 (0.2-1.3) mg/dL AST 17 (14-36) U/L ALT 12 (4-34) U/L Alkaline Phosphatase 61 (38-126) U/L Total Protein 7.6 (6.3-8.2) g/dL Albumin 4.7 (3.5-5.0) g/dL Lipase 20 L (23-300) U/L Urine Color Light Yellow Urine Appearance Cloudy H (Clear) Urine pH 8.5 H (5.0-8.0) Ur Specific [place] 1.024 (1.001-1.035) Urine Protein Trace H (Negative) Urine Glucose (UA) Negative (Negative) Urine Ketones Negative (Negative) Urine Blood Small H (Negative) Urine Nitrite Negative (Negative) Urine Bilirubin Negative (Negative) Urine Urobilinogen <2.0 (<2.0) mg/dL Ur Leukocyte Esterase Negative (Negative) Urine RBC 53 H (0-5) /hpf Urine WBC 2 (0-5) /hpf Ur Squamous Epith Cells 6 H (0-4) /hpf Urine Bacteria Occasional H (None) /hpf Urine Mucus Few H (None) /hpf Urine HCG, Qual (Not Detectd) 06/11/24 Range/Units 05:20 WBC (3.8-10.6) k/uL RBC (3.80-5.40) m/uL Hgb (11.4-16.0) gm/dL Hct (34.0-46.0) % MCV (80.0-100.0) fL MCH (25.0-35.0) pg MCHC (31.0-37.0) g/dL RDW (11.5-15.5) % Plt Count (150-450) k/uL MPV Neutrophils % % Lymphocytes % % Monocytes % % Eosinophils % % Basophils % % Neutrophils # (1.3-7.7) k/uL Lymphocytes # (1.0-4.8) k/uL Monocytes # (0-1.0) k/uL Eosinophils # (0-0.7) k/uL Basophils # (0-0.2) k/uL Sodium (137-145) mmol/L Potassium (3.5-5.1) mmol/L Chloride (98-107) mmol/L Carbon Dioxide (22-30) mmol/L Anion Gap mmol/L BUN (7-17) mg/dL Creatinine (0.52-1.04) mg/dL Est GFR (CKD-EPI)AfAm (>60 ml/min/1.73 sqM) Est GFR (CKD-EPI)NonAf (>60 ml/min/1.73 sqM) Glucose (74-99) mg/dL Calcium (8.4-10.2) mg/dL Phosphorus (2.5-4.5) mg/dL Magnesium (1.6-2.3) mg/dL Total Bilirubin (0.2-1.3) mg/dL AST (14-36) U/L ALT (4-34) U/L Alkaline Phosphatase (38-126) U/L Total Protein (6.3-8.2) g/dL Albumin (3.5-5.0) g/dL Lipase (23-300) U/L Urine Color Urine Appearance (Clear) Urine pH (5.0-8.0) Ur Specific [place] (1.001-1.035) Urine Protein (Negative) Urine Glucose (UA) (Negative) Urine Ketones (Negative) Urine Blood (Negative) Urine Nitrite (Negative) Urine Bilirubin (Negative) Urine Urobilinogen (<2.0) mg/dL Ur Leukocyte Esterase (Negative) Urine RBC (0-5) /hpf Urine WBC (0-5) /hpf Ur Squamous Epith Cells (0-4) /hpf Urine Bacteria (None) /hpf Urine Mucus (None) /hpf Urine HCG, Qual Not Detected (Not Detectd) Disposition Clinical Impression: Coronavirus infection, Nausea & vomiting Disposition: HOME SELF-CARE Condition: Good Instructions (If sedation given, give patient instructions): Coronavirus Disease 2019 (COVID-19), Acute Nausea and Vomiting (ED) Is patient prescribed a controlled substance at d/c from ED?: No Referrals: None,Stated [Primary Care Provider] - 1-2 days Time of Disposition: 06:00
[2024-06-11] MEDS: ONDANSETRON 4 MG/2 ML VIAL IVP STA (05:11)
[2024-06-11] MEDS: SODIUM CHLORIDE 0.9% 1,000 ML IV STA (05:11)
[2024-06-11] MEDS: SODIUM CHLORIDE 0.9% 500 ML 500 ML IV STA (05:11)
[2024-06-11] MEDS: PANTOPRAZOLE 40 MG/10 ML VIAL IV STA (05:14)
[2024-06-11 05:15] LABS: Basophils % (A) 0 %; Eosinophils # (A) 0.1 k/uL (0-0.7); Eosinophils % (A) 1 %; HCT 36.7 % (34.0-46.0); HGB 11.9 gm/dL (11.4-16.0); Lymphocytes # (A) 0.5 k/uL (1.0-4.8); Lymphocytes % (A) 7 %; MCH 26.9 pg (25.0-35.0); MCHC 32.4 g/dL (31.0-37.0); Mean Platelet Volume 8.4; Monocytes # (A) 0.2 k/uL (0-1.0); Monocytes % (A) 3 %; Neutrophils # (A) 6.6 k/uL (1.3-7.7); Neutrophils % (A) 88 %; Platelet Count 200 k/uL (150-450); RBC 4.41 m/uL (3.80-5.40); RDW 13.8 % (11.5-15.5); WBC 7.5 k/uL (3.8-10.6)
[2024-06-11 05:43] LABS: Appearance,Urine Cloudy (Clear); Bacteria,Urine Occasional /hpf; Bilirubin,Urine Negative (Negative); Blood,Urine Small (Negative); Color,Urine Light Yellow; Glucose,Urine (UA) Negative (Negative); Ketones,Urine Negative (Negative); Leukocyte Esterase,Urine Negative (Negative); Mucus,Urine Few /hpf; Nitrite,Urine Negative (Negative); PH, Urine 8.5 (5.0-8.0); Protein,Urine Trace (Negative); RBC,Urine 53 /hpf (0-5); Specific Gravity,Urine 1.024 (1.001-1.035); Squamous Epithelial Cell,Urine 6 /hpf (0-4); Urobilinogen,Urine <2.0 mg/dL (<2.0); WBC,Urine 2 /hpf (0-5)
[2024-06-11 05:59] LABS: ALT 12 U/L (4-34); AST 17 U/L (14-36); African American GFR (CKD) >90 (>60 ml/min/1.73 sqM); Albumin 4.7 g/dL (3.5-5.0); Alkaline Phosphatase 61 U/L (38-126); Anion Gap 5 mmol/L; Blood Urea Nitrogen 21 mg/dL (7-17); Carbon Dioxide 24 mmol/L (22-30); Chloride 108 mmol/L (98-107); Glucose 106 mg/dL (74-99); Lipase 20 U/L (23-300); Magnesium 1.9 mg/dL (1.6-2.3); Non-African American GFR(CKD) >90 (>60 ml/min/1.73 sqM); Phosphorus 4.1 mg/dL (2.5-4.5); Potassium 3.9 mmol/L (3.5-5.1); Sodium 137 mmol/L (137-145); Total Bilirubin 0.5 mg/dL (0.2-1.3); Total Protein 7.6 g/dL (6.3-8.2)
[2024-06-11] MEDS: IBUPROFEN 600 MG STARTER PACK 4 TAB BTL PO STA (06:26)
[2024-06-11] MEDS: KETOROLAC 15 MG/ML 1 ML VIAL IVP STA (06:27)
[2024-06-11] MEDS: ONDANSETRON 4 MG ODT STARTER PACK 2 TAB BTL PO STA (06:27)
[2024-06-11] MEDS: DEXAMETHASONE SOD PHOSPHATE 10 MG/ML 1 ML VIAL IVP STA (06:28)
[2024-06-11 06:37] VITALS: BP 98/61; PULSE 68; RESP 15
== END 2024-06-11 06:37 | disposition home or self-care (01) ==
LOC: EC 04:40
DX: U07.1 COVID-19 (principal); R11.2 Nausea with vomiting, unspecified; F17.290 Nicotine dependence, other tobacco product, uncomplicated; Z88.8 Allergy status to other drugs, medicaments and biological substances; Z91.040 Latex allergy status; Z91.011 Allergy to milk products
CPT/HCPCS: 36415; 80053; 83690; 83735; 84100; 85025; 81001; 81025; 99284; 96374; 96375 ×3; 96361; J1100; J2405; J1885; S0119; J2470

== ENCOUNTER 2024-12-01 07:26 | Emergency (ER) | payer OTHER ==
[2024-12-01 07:42] VITALS: RESP 18
[2024-12-01] MEDS: KETOROLAC 15 MG/ML 1 ML VIAL IVP STA (08:42)
[2024-12-01] MEDS: SODIUM CHLORIDE 0.9% 1,000 ML IV ONE (08:42)
[2024-12-01] MEDS: ONDANSETRON 4 MG/2 ML VIAL IVP STA (08:44)
[2024-12-01 08:46] LABS: Basophils # (A) 0.05 10*3/uL (0.00-0.10); Basophils % (A) 0.5 %; Eosinophils # (A) 0.12 10*3/uL (0.04-0.35); Eosinophils % (A) 1.2 %; HCT 37.6 % (37.2-46.3); HGB 12.1 g/dL (12.0-15.0); Lymphocytes # (A) 2.12 10*3/uL (0.90-5.00); MCH 26.4 pg (27.0-32.0); MCHC 32.2 g/dL (32.0-37.0); MCV 81.9 fL (80.0-97.0); Mean Platelet Volume 10.3 fL (9.5-12.2); Monocytes # (A) 0.53 10*3/uL (0.20-1.00); Monocytes % (A) 5.5 %; Neutrophils # (A) 6.76 10*3/uL (1.80-7.70); Neutrophils % (A) 70.4 %; Platelet Count 316 10*3/uL (140-440); RBC 4.59 10*6/uL (4.10-5.20); RDW 14.5 % (11.5-14.5); WBC 9.62 10*3/uL (4.50-10.00)
[2024-12-01 08:49] LABS: Appearance,Urine Clear (Clear); Bacteria,Urine Few /hpf; Bilirubin,Urine Negative (Negative); Blood,Urine Small (Negative); Color,Urine Dark Yellow; Glucose,Urine (UA) Negative (Negative); Ketones,Urine Negative (Negative); Leukocyte Esterase,Urine Trace (Negative); Mucus,Urine Rare /hpf; Nitrite,Urine Negative (Negative); PH, Urine 5.5 (5.0-8.0); Protein,Urine Negative (Negative); RBC,Urine 6 /hpf (0-5); Specific Gravity,Urine 1.014 (1.001-1.035); Squamous Epithelial Cell,Urine 2 /hpf (0-4); Urobilinogen,Urine <2.0 mg/dL (<2.0); WBC,Urine 20 /hpf (0-5)
[2024-12-01 09:06] LABS: ALT 12 U/L (4-34); AST 19 U/L (14-36); African American GFR (CKD) >90 (>60 ml/min/1.73 sqM); Albumin 4.9 g/dL (3.5-5.0); Alkaline Phosphatase 74 U/L (38-126); Amylase 66 U/L (30-110); Anion Gap 10 mmol/L; Blood Urea Nitrogen 12 mg/dL (7-17); Calcium 9.4 mg/dL (8.4-10.2); Carbon Dioxide 26 mmol/L (22-30); Chloride 104 mmol/L (98-107); Glucose 97 mg/dL (74-99); Lipase 64 U/L (23-300); Non-African American GFR(CKD) >90 (>60 ml/min/1.73 sqM); Sodium 140 mmol/L (137-145); Total Bilirubin 0.5 mg/dL (0.2-1.3); Total Protein 8.4 g/dL (6.3-8.2)
--- NOTE | 2024-12-01 09:07 | XR ---
EXAMINATION TYPE: XR KUB DATE OF EXAM: 12/01/2024 8:58 AM COMPARISON: None CLINICAL INDICATION: Female, 24 years old with history of abdominal pain; [facility] TECHNIQUE: One radiographic view of the abdomen was obtained. FINDINGS: The bowel gas pattern is nonspecific without dilated loops of small or large bowel. . Fecal material and gas are demonstrated throughout the colon and rectum. There is no evidence for organome radha or pneumoperitoneum. No acute osseous process. No abnormal calcifications are present. IMPRESSION: Nonspecific bowel gas pattern without radiographic evidence for acute process. [facility], , 12/01/2024 9:04 AM
--- NOTE | 2024-12-01 09:28 | CT ---
EXAMINATION TYPE: CT abdomen pelvis wo con DATE OF EXAM: 12/01/2024 9:08 AM COMPARISON: None. CLINICAL INDICATION: Female, 24 years old with history of abdominal pain. right flank pain, Rt side f lank pain. UTI. TECHNIQUE: Axial images were obtained from above the diaphragm to the pubic rami in the axial plane a t 5 mm thick sections. Reconstructed images are reviewed on the computer in the coronal plane. CONTRAST: mL of . Study performed without Oral Contrast DLP: 380.5 mGycm, Automated exposure control for dose reduction was used. FINDINGS: Limited CT sections are obtained the lung bases. The lung bases are clear. CT ABDOMEN: Liver: Normal Spleen: Normal Pancreas: Normal Adrenal glands: The adrenal glands are normal. Gallbladder: Normal Kidneys: No masses are evident. No hydronephrosis is present. No cysts are present. Mild hydrouret er and minimal hydronephrosis may be present on the right. No obstructing renal or ureteral stone is evident however. Correlate for recent passage of a renal stone. Aorta: Normal Inferior vena cava: Normal. CT PELVIS: Loops of bowel within the abdomen and pelvis are normal. The study is without oral contrast limit ing bowel evaluation. Appendix: Normal as visualized. Urinary bladder: Normal. Genitourinary structures: Uterus is normal. Adnexa is normal. Osseous structures: No suspicious lytic or sclerotic lesions. IMPRESSION: 1. There is mild right hydroureter nephrosis and hydroureter. No obstructing renal stones identified . Consider recent passage of the ureteral stone [facility], , 12/01/2024 9:26 AM
--- NOTE | 2024-12-01 09:53 | ED ---
General Adult HPI - General Chief complaint: Urogenital Stated complaint: back pain, urogenital Time Seen by Provider: 12/01/24 08:02 Source: patient, RN notes reviewed, old records reviewed Mode of arrival: ambulatory Limitations: no limitations - History of Present Illness Initial comments: Patient is a 24-year-old female presents emergency department complaining of right flank pain. States she has been treated for UTI if she has had symptoms for the last week. Is currently on day 7 of antibiotics. Patient states that over the last 24 hours she began experiencing right-sided back pain with right flank pain and had a brief episode of approximately 3 hours of hematuria. This is all since resolved other than some mild discomfort in the right flank. Denies being . Denies any surgical history for the abdomen. Denies any vaginal discharge or bleeding. Denies nausea or vomiting. Denies diarrhea. Presents for further evaluation at this time.Patient states that the pain was in the right lower back and right flank with radiation towards her groin. - Related Data Home Medications Medication Instructions Recorded Confirmed lamoTRIgine [LaMICtal] 25 mg PO HS 05/09/22 05/09/22 lamoTRIgine [LaMICtal] 200 mg PO HS 05/09/22 05/09/22 Previous Rx's Medication Instructions Recorded Ibuprofen [Motrin] 800 mg PO Q8HR PRN #30 tab 09/05/22 Ondansetron Odt [Zofran Odt] 4 mg PO Q8HR PRN #10 tab 07/30/23 Tamsulosin [Flomax] 0.4 mg PO DAILY 5 Days #5 cap 12/01/24 Allergies Allergy/AdvReac Type Severity Reaction Status Date / Time latex Allergy Rash/Hives Verified 12/01/24 07:41 lactose AdvReac Abdominal Verified 12/01/24 07:41 Pain metoclopramide [From Reglan] AdvReac Chest Pain Verified 12/01/24 07:41 Review of Systems ROS Statement: Those systems with pertinent positive or pertinent negative responses have been documented in the HPI. Review of Systems: CONST: Denies fever EYES: Denies blurry vision ENT: Denies nasal congestion C/V: Denies Chest pain RESP: Denies shortness of breath GI: Endorses flank pain : Endorses dysuria, hematuria SKIN: Denies rash. MSK: Denies joint pain. NEURO: Denies headache ROS Other: All systems not noted in ROS Statement are negative. Past Medical History Past Medical History: No Reported History, Blood Disorder, Fibromyalgia Additional Past Medical History / Comment(s): anemia, fibromyalgia, History of Any Multi-Drug Resistant Organisms: None Reported Past Surgical History: Ear Surgery Past Anesthesia/Blood Transfusion Reactions: No Reported Reaction Past Psychological History: Bipolar Smoking Status: Former smoker, Vaper Past Alcohol Use History: None Reported Past Drug Use History: Marijuana - Past Family History Father Family Medical History: No Reported History General Exam - General Exam Comments Initial Comments: General: Appears in no acute distress. HEAD: Normal with no signs of head trauma. EYES: EOMI ENT: Normal oropharynx RESPIRATORY: Clear breath sounds bilaterally. No wheezes, rales, or rhonchi. C/V: Regular rate and rhythm. S1 and S2 auscultated. ABD: Abdomen soft, nondistended. Tenderness palpation of the right flank. No guarding or rebound tenderness. No peritoneal signs. EXT: No obvious deformity SKIN: No rashes or lesions observed on exposed skin. NEURO: Alert and orient x 4. Limitations: no limitations Course Vital Signs 12/01/24 12/01/24 07:36 10:03 Temperature 97.9 F 98.2 F Pulse Rate 74 62 Respiratory 18 18 Rate Blood Pressure 103/63 105/63 O2 Sat by Pulse 100 100 Oximetry Medical Decision Making - Medical Decision Making Was pt. sent in by a medical professional or institution ([facility], [facility], urgent care, hospital, or penitentiary...) When possible be specific @ -No Did you speak to anyone other than the patient for history (EMS, parent, family, police, friend...)? What history was obtained from this source @ -No Did you review nursing and triage notes (agree or disagree)? Why? @ -I reviewed and agree with nursing and triage notes Were old charts reviewed (outside hosp., previous admission, EMS record, old EKG, old radiological studies, urgent care reports/EKG's, penitentiary records)? Report findings @ -No old charts were reviewed Differential Diagnosis (chest pain, altered mental status, abdominal pain women, abdominal pain men, vaginal bleeding, weakness, fever, dyspnea, syncope, headache, dizziness, GI bleed, back pain, seizure, CVA, palpatations, mental health, musculoskeletal)? @ -Differential Abdominal Pain Women: Appendicitis, Cholecystitis, diverticulosis, ischemic bowel, pancreatitis, hepatitis, UTI, gastroenteritis, AAA, incarcerated hernia, bowel obstruction, constipation, inflammatory bowel, hepatitis, peptic ulcer disease, splenic in farction, perforated viscus, vulvitis, ovarian torsion, PID, kidney stone, placenta abruption, this is not meant to be an all-inclusive list EKG interpreted by me (3pts min.). @ -None X-rays interpreted by me (1pt min.). @ -KUB x-ray shows no obvious acute process. CT interpreted by me (1pt min.). @ -CT abdomen pelvis reveals mild right sided hydroureter and mild hydronephrosis. Likely secondary to a passed kidney stone as there is no evidence of current obstruction present. U/S interpreted by me (1pt. min.). @ -None done What testing was considered but not performed or refused? (CT, X-rays, U/S, labs)? Why? @ -None What meds were considered but not given or refused? Why? @ -None Did you discuss the management of the patient with other professionals (professionals i.e. , PA, [facility], lab, RT, psych nurse, licensed master social worker, document design specialist, teacher, unemployment insurance hearing officer, case assembler)? Give summary @ -No Was smoking cessation discussed for >3mins.? @ -No Was critical care preformed (if so, how long)? @ -No Were there social determinants of health that impacted care today? How? (Homelessness, low income, unemployed, alcoholism, drug addiction, transportation, low edu. Level, literacy, decrease access to med. care, retirement, rehab)? @ -No Was there de-escalation of care discussed even if they declined (Discuss DNR or withdrawal of care, Hospice)? DNR status @ -No What co-morbidities impacted this encounter? (DM, HTN, Smoking, COPD, CAD, Cancer, CVA, ARF, Chemo, Hep., AIDS, mental health diagnosis, sleep apnea, morbid obesity)? @ -None Was patient admitted / discharged? Hospital course, mention meds given and route, prescriptions, significant lab abnormalities, going to OR and other pe rtinent info. @ -Based on patient's presentation physical exam, presents with right flank pain with dysuria and hematuria. Seems to be related to kidney stone. Will obtain CT imaging. Abdominal labs will be obtained. Vital signs are within acceptable limits. Patient will be administered IV fluids, Toradol, Zofran. She was in agreement this plan. Labs are unremarkable. Urinalysis shows white cells but very few bacteria and no nitrite. Currently on last day of antibiotics and do not believe she needs to continue. Small mount of blood. CT imaging shows findings consistent with a recently passed kidney stone which fits with the patient's clinical presentation. I updated the patient. She is pain-free. She expressed understanding that she likely had a recently passed kidney stone. She be discharged home on Flomax. Recommend she follow-up with her PCP. She was in agreement this plan. Strict return precautions discussed. I will provide the patient with a prescription for Flomax. I instructed the patient to follow up with their PCP in the next 1-3 days. I explained that the patient should return to the emergency department if they experience any worsening symptoms. Strict return precautions were discussed with the patient. The patient expressed understanding of these instructions. I answered all questions that the patient had. The patient was discharged home in good condition with their prescriptions and follow up information. Undiagnosed new problem with uncertain prognosis? @ -No Drug Therapy requiring intensive monitoring for toxicity (Heparin, Nitro, Insuli n, Cardizem)? @ -No Were any procedures done? @ -No Diagnosis/symptom? @ -Ureterolithiasis Acute, or Chronic, or Acute on Chronic? @ -Acute Uncomplicated (without systemic symptoms) or Complicated (systemic symptoms)? @ -Uncomplicated Side effects of treatment? @ -No Exacerbation, Progression, or Severe Exacerbation? @ -No Poses a threat to life or bodily function? How? (Chest pain, [place], [place], pneumonia, PE, COPD, DKA, ARF, appy, cholecystitis, CVA, Diverticulitis, Homicidal, Suicidal, threat to staff... and all critical care pts) @ -Unlikely at this time - Lab Data Result diagrams: 12/01/24 08:39 12/01/24 08:39 Lab Results 12/01/24 12/01/24 12/01/24 Range/Units 08:02 08:02 08:39 WBC 9.62 (4.50-10.00) 10*3/uL RBC 4.59 (4.10-5.20) 10*6/uL Hgb 12.1 (12.0-15.0) g/dL Hct 37.6 (37.2-46.3) % MCV 81.9 (80.0-97.0) fL MCH 26.4 L (27.0-32.0) pg MCHC 32.2 (32.0-37.0) g/dL Plt Count 316 (140-440) 10*3/uL MPV 10.3 (9.5-12.2) fL Immature Gran % (Auto) 0.4 % Neutrophils % 70.4 % Lymphocytes % 22.0 % Monocytes % 5.5 % Eosinophils % 1.2 % Basophils % 0.5 % Immature Gran # 0.04 (0.00-0.04) 10*3/uL Neutrophils # 6.76 (1.80-7.70) 10*3/uL Lymphocytes # 2.12 (0.90-5.00) 10*3/uL Monocytes # 0.53 (0.20-1.00) 10*3/uL Eosinophils # 0.12 (0.04-0.35) 10*3/uL Basophils # 0.05 (0.00-0.10) 10*3/uL Sodium (137-145) mmol/L Potassium (3.5-5.1) mmol/L Chloride (98-107) mmol/L Carbon Dioxide (22-30) mmol/L Anion Gap mmol/L BUN (7-17) mg/dL Creatinine (0.52-1.04) mg/dL Est GFR (CKD-EPI)AfAm (>60 ml/min/1.73 sqM) Est GFR (CKD-EPI)NonAf (>60 ml/min/1.73 sqM) Glucose (74-99) mg/dL Plasma Lactic Acid Jordon (0.7-2.0) mmol/L Calcium (8.4-10.2) mg/dL Total Bilirubin (0.2-1.3) mg/dL AST (14-36) U/L ALT (4-34) U/L Alkaline Phosphatase (38-126) U/L Total Protein (6.3-8.2) g/dL Albumin (3.5-5.0) g/dL Amylase (30-110) U/L Lipase (23-300) U/L Urine Color Dark Yellow Urine Appearance Clear (Clear) Urine pH 5.5 (5.0-8.0) Ur Specific [place] 1.014 (1.001-1.035) Urine Protein Negative (Negative) Urine Glucose (UA) Negative (Negative) Urine Ketones Negative (Negative) Urine Blood Small H (Negative) Urine Nitrite Negative (Negative) Urine Bilirubin Negative (Negative) Urine Urobilinogen <2.0 (<2.0) mg/dL Ur Leukocyte Esterase Trace H (Negative) Urine RBC 6 H (0-5) /hpf Urine WBC 20 H (0-5) /hpf Ur Squamous Epith Cells 2 (0-4) /hpf Urine Bacteria Few H (None) /hpf Urine Mucus Rare H (None) /hpf Urine HCG, Qual Not Detected (Not Detectd) 12/01/24 12/01/24 Range/Units 08:39 08:39 WBC (4.50-10.00) 10*3/uL RBC (4.10-5.20) 10*6/uL Hgb (12.0-15.0) g/dL Hct (37.2-46.3) % MCV (80.0-97.0) fL MCH (27.0-32.0) pg MCHC (32.0-37.0) g/dL Plt Count (140-440) 10*3/uL MPV (9.5-12.2) fL Immature Gran % (Auto) % Neutrophils % % Lymphocytes % % Monocytes % % Eosinophils % % Basophils % % Immature Gran # (0.00-0.04) 10*3/uL Neutrophils # (1.80-7.70) 10*3/uL Lymphocytes # (0.90-5.00) 10*3/uL Monocytes # (0.20-1.00) 10*3/uL Eosinophils # (0.04-0.35) 10*3/uL Basophils # (0.00-0.10) 10*3/uL Sodium 140 (137-145) mmol/L Potassium 4.0 (3.5-5.1) mmol/L Chloride 104 (98-107) mmol/L Carbon Dioxide 26 (22-30) mmol/L Anion Gap 10 mmol/L BUN 12 (7-17) mg/dL Creatinine 0.63 (0.52-1.04) mg/dL Est GFR (CKD-EPI)AfAm >90 (>60 ml/min/1.73 sqM) Est GFR (CKD-EPI)NonAf >90 (>60 ml/min/1.73 sqM) Glucose 97 (74-99) mg/dL Plasma Lactic Acid Jordon 0.7 (0.7-2.0) mmol/L Calcium 9.4 (8.4-10.2) mg/dL Total Bilirubin 0.5 (0.2-1.3) mg/dL AST 19 (14-36) U/L ALT 12 (4-34) U/L Alkaline Phosphatase 74 (38-126) U/L Total Protein 8.4 H (6.3-8.2) g/dL Albumin 4.9 (3.5-5.0) g/dL Amylase 66 (30-110) U/L Lipase 64 (23-300) U/L Urine Color Urine Appearance (Clear) Urine pH (5.0-8.0) Ur Specific [place] (1.001-1.035) Urine Protein (Negative) Urine Glucose (UA) (Negative) Urine Ketones (Negative) Urine Blood (Negative) Urine Nitrite (Negative) Urine Bilirubin (Negative) Urine Urobilinogen (<2.0) mg/dL Ur Leukocyte Esterase (Negative) Urine RBC (0-5) /hpf Urine WBC (0-5) /hpf Ur Squamous Epith Cells (0-4) /hpf Urine Bacteria (None) /hpf Urine Mucus (None) /hpf Urine HCG, Qual (Not Detectd) Disposition Clinical Impression: Ureterolithiasis Disposition: HOME SELF-CARE Condition: Good Instructions (If sedation given, give patient instructions): Kidney Stones (ED) Prescriptions: Tamsulosin [Flomax] 0.4 mg PO DAILY 5 Days #5 cap Is patient prescribed a controlled substance at d/c from ED?: No Referrals: None,Stated [Primary Care Provider] - 1-2 days Forms: Area PCPs Time of Disposition: 09:52
[2024-12-01] MEDS: TAMSULOSIN 0.4 MG CAP.ER.24H PO STA (09:57)
[2024-12-01] MEDS: ONDANSETRON 4 MG ODT STARTER PACK 2 TAB BTL PO STA (09:58)
[2024-12-01 10:04] VITALS: BP 105/63; PULSE 62; TEMP 98.2
== END 2024-12-01 10:04 | disposition home or self-care (01) ==
LOC: EC 07:26
DX: N20.1 Calculus of ureter (principal); F17.290 Nicotine dependence, other tobacco product, uncomplicated; Z91.011 Allergy to milk products; Z91.040 Latex allergy status; Z88.8 Allergy status to other drugs, medicaments and biological substances
CPT/HCPCS: 36415; 80053; 82150; 83605; 83690; 85025; 81001; 81025; 87086; 74018; 74176; 99284; 96374; 96375; 96361; J2405; J1885; S0119